=== PATIENT | female | born 1955 | race Caucasian/White ===

== ENCOUNTER → 2016-07-15 | Outpatient (CLI) | payer BC ==
[~2016-07-15] MED LIST: ASP81CT; ASP81CT PO; ATOR40TA; BPR150TCR PO; BUPR150T6; CALC-52 PO; CARV12.52; CARV12.52 PO; CATHETER FLUSH 10 ML SYR IV PRN; CLPD75T; CLPD75T PO; EZET10TA5; EZET10TA5 PO; FAMO20TA5 PO; FLAX1CAP6 PO; GLUC-96 PO; HYDR-3720 PO; ISM30TCR; KRIL500C PO; MEGA RED PO; MTF500TCR; NAPR-243 PO; NF-ESOM40C; NFR150C; OLME40TA14; OLME40TA14 PO; OMEG1CAP PO; OMG1KC; ORPH100T PO; PITA4TAB2 PO; REGADENOSON 0.4 MG/5 ML SYR (LEXISCAN) IV ONE
[2016-07-15 13:29] VITALS: BP 173/88
[2016-07-15 13:35] VITALS: BP 189/92
== END ==
LOC: CARD 11:31
PROVIDERS: ATTEND Physician Assistant Medical
DX: I25.10 Atherosclerotic heart disease of native coronary artery without angina pectoris (principal); I10 Essential (primary) hypertension; E78.5 Hyperlipidemia, unspecified; Z95.5 Presence of coronary angioplasty implant and graft
CPT/HCPCS: 78452; 93017

== ENCOUNTER → 2017-01-20 | Outpatient (CLI) | payer BC ==
[~2017-01-20] MED LIST changes: -CATHETER FLUSH 10 ML SYR IV PRN; -REGADENOSON 0.4 MG/5 ML SYR (LEXISCAN) IV ONE
--- NOTE | 2017-01-21 09:17 | Diagnostic Imaging Report ---
Bilateral screening mammogram 2D views with tomosynthesis The current study was also evaluated with a Computer Aided Detection (CAD) system. Indication: Screening. No current complaints stated on the questionnaire. COMPARISON: 10/02/15. FINDINGS: The breasts are composed of scattered fibroglandular densities. Occasional benign-appearing calcifications are seen. There is an area of stable scarring in the central aspect of the left breast. Allowing for technique and positional differences, no suspicious change is seen. IMPRESSION: No significant change. ACR BI-RADS Category 2: Benign findings. Result letter will be mailed to the patient. Note: At least 10% of breast cancer is not imaged by mammography. Dictated by: Dictated on workstation # [id number]
== END ==
LOC: RAD 09:38
PROVIDERS: ATTEND Nurse Practitioner Family
DX: Z12.31 Encounter for screening mammogram for malignant neoplasm of breast (principal)
CPT/HCPCS: 77067

== ENCOUNTER 2017-08-12 07:18 | Day surgery (SDC) | payer BC ==
[2017-08-12] VITALS (7 sets, daily range): BP systolic 102–144; BP diastolic 64–95
[~2017-08-12] VITALS: Ht 165.1 cm; Wt 93.4 kg
[2017-08-12] MEDS ORDERED: LIDOCAINE 1% INJ 20 ML 20 ML VIAL ONE (07:31)
[2017-08-12] MEDS ORDERED: NS IV 1000 ML 1,000 ML ONE (07:31)
[2017-08-12] MEDS ORDERED: HEParin (CATH LAB) 2,000 ML IV ONE (07:31)
[2017-08-12] MEDS ORDERED: NS IV 1000 ML 1,000 ML IV SCH ×2 (07:45→09:24)
[2017-08-12 07:59] LABS: HEMOGLOBIN 13.2 G/DL (11.5-16.0); RED BLOOD COUNT 4.92 10^6/uL (4.35-5.85); RED CELL DISTRIBUTION WIDTH 20.3 % (10.0-14.5); WHITE BLOOD COUNT 12.2 10^3/uL (4.3-11.0)
[2017-08-12] MEDS ORDERED: fentaNYL INJECTION 100 MCG/2 ML AMP ONE (08:03)
[2017-08-12] MEDS ORDERED: MIDAZOLAM 5 MG/5 ML (VERSED) VIAL ONE (08:03)
[2017-08-12] MEDS ORDERED: diphenhydrAMINE 50 MG/ML INJ (BENADRYL) ONE (08:03)
[2017-08-12 08:14] LABS: PROTHROMBIN TIME PATIENT 12.9 SEC (12.2-14.7)
[2017-08-12 08:21] LABS: ALBUMIN 4.1 GM/DL (3.2-4.5); BILIRUBIN,TOTAL 0.5 MG/DL (0.1-1.0); CALCIUM 10.3 MG/DL (8.5-10.1); CREATININE SERUM 1.14 MG/DL (0.60-1.30); POTASSIUM 4.5 MMOL/L (3.6-5.0); TOTAL PROTEIN 7.8 GM/DL (6.4-8.2)
--- NOTE | 2017-08-12 08:25 | Cardiac Procedure Note-CS/ASA ---
Pre-Procedure Note Pre-Op Procedure Note H&P Reviewed The H&P was reviewed, patient examined and no changes noted. Date H&P Reviewed: Aug 12, 2017 Time H&P Reviewed: 08:25 Conscious Sedation Pre-Proced Time Reviewed: 08:25 ASA Class: 3 Airway Mallampati Classification: (umatilla tribe appropriate class) I. II. III, IV Lungs Heart ASA score ASA 1: a normal healthy patient ASA 2: a patient with a mild systemic disease (mid diabetes, controlled hypertension, obesity ASA 3: a patient with a severe systemic disease that limits activity (angina , COPD, prior Myocardial infarction) ASA 4: a patient with an incapacitating disease that is a constant threat to life (CHF, renal failure) ASA 5: a moribund patient not expected to survive 24 hrs. (ruptured aneurysm) ASA 6: a declared brain patient whose organs are being harvested. For emergent operations, add the letter E after the classification Grade 2 Sedation Plan: Analgesia, Amnesia, Plan communicated to team members, Discussed options with patient/fam, Discussed risks with patient/fam Note The patient is an appropriate candidate to undergo the planned procedure, sedation, and anesthesia. The patient immediately re-assessed prior to indication. LEO KIRKPATRICK MD FACP FACC [facility] Aug 12, 2017 08:25
[2017-08-12] MEDS ORDERED: ISOS30TA3 PO (08:34)
--- NOTE | 2017-08-12 09:27 | Discharge Inst-Post CATH ---
Discharge Inst-CATH Post Cardiac Cath D/C Inst Follow Up/Plan F/u with Dr Paul in 2-3 weeks CARDIAC CATH DISCHARGE INSTRUCTIONS *Hold Metformin for 48 hours post heart cath. ACTIVITY * Go Home directly and rest. * Limit activity of the leg (or wrist if it was used) for 7 days including aerobics, swimming, jogging, bicycling, etc. * Restrict stair-climbing for 7 days if possible, if not, climb up with your non -cath leg, then bring together on the same step. * Avoid lifting, pushing, pulling or excessive movement of the affected extremity for 7 days. * Customary sexual activity may be resumed after 2 days-use caution not to use a position that strains or causes pain to the affected extremity. * No driving for 24 hours. * NO SMOKING. * Avoid straining for bowel movements for 7 days. * Gentle walking on level ground is allowed. * Returning to work will depend on the type of procedure and the results. Your doctor will discuss this with you. CALL YOUR DOCTOR FOR ANY OF THE FOLLOWING: *If bleeding from the puncture site occurs- Apply gentle pressure to site with clean cloth and call your doctor or EMS. * If a knot or lump forms under the skin, increases in size, or causes pain. * If bruising appears to be worsening or moving further down your leg instead of disappearing. * Temperature above 101 F. CARE OF YOUR GROIN INCISION; * Bruising or purple discoloration of the skin near the puncture site is common. * You may shower only, no bathtub bathing for 5 days. Be careful to avoid slipping as your leg may feel stiff. * If a closure device was used on your femoral artery, please see the attached guide regarding care of the device and your leg. * REMOVE the dressing from your groin the next day after your procedure in the shower. CARE OF YOUR WRIST INCISION; * Bruising or purple discoloration of the skin near the puncture site is common. * You may shower. * DO NOT submerge wrist. * Remove dressing in 24 hours. LEO PAUL MD [facility]S Aug 12, 2017 09:27
--- NOTE | 2017-08-12 09:28 | Discharge Inst-Cardiology ---
Discharge Inst-Cardiac Discharge Medications Continued Medications: Aspirin (Aspirin 81 Mg Chew Tab) 81 Mg Chew 162 MG PO BID Bupropion Hcl (Wellbutrin Sr) 150 Mg Tablet 1 TAB PO BID, #30 TAB Calcium Citrate/Vitamin D3 (Calcium Citrate - Vit D Caplet) 1 Each Tablet 2 EACH PO DAILY Carvedilol (Coreg) 12.5 Mg Tablet 1 TAB PO BID Clopidogrel (Plavix) 75 Mg Tablet 1 EACH PO DAILY Ezetimibe (Zetia) 10 Mg Tablet 10 MG PO HS Famotidine (Pepcid) 20 Mg Tablet 1 EACH PO BID Flaxseed Oil/Holdrege 3,6,9 (Sv Flaxseed Oil 1,300 mg Sftgl) 1 Each Capsule 1 EACH PO BID Hydrocodone Bit/Acetaminophen (Lortab 10-325 Mg) 1 Ea Tab 1-2 EA PO Q6HR PRN for PAIN, #60 TAB 0 Refills Isosorbide Mononitrate (Isosorbide Mononitrate ER) 30 Mg Tab.er.24h 30 MG PO BID, TAB [Cornell Red ] () 1 TAB PO BID Naproxen (Naprosyn) 500 Mg Tablet 1 EACH PO BID PRN Olmesartan Medoxomil (Benicar) 40 Mg Tablet 1 TAB PO DAILY Orphenadrine Citrate (Norflex) 100 Mg Tablet.sa 100 MG PO BID PRN Pitavastatin Calcium (Livalo) 4 Mg Tablet 4 MG PO DAILY LEO KIRKPATRICK MD FACP [facility] CCDS Aug 12, 2017 09:28
[2017-08-12] MEDS ORDERED: PATIENT MAY USE OWN MEDS, ALL PO SCH (09:30)
--- NOTE | 2017-08-12 13:23 | CARDIAC CATHETERIZATION ---
DATE OF SERVICE: 08/12/2017 CARDIAC CATHETERIZATION REPORT The patient is a 61-year-old lady, who is known to have coronary artery disease and has previously had stenting of the mid left anterior descending in the ostial and proximal right coronary, several years ago. She has been experiencing recurrent chest discomfort suggestive of crescendo angina. A recent myocardial perfusion imaging study was reported to have shown a small amount of mid anterior lateral reversible defect. Cardiac catheterization was carried out today after having obtained an informed consent. DESCRIPTION OF PROCEDURE: She was brought to the cardiac catheterization laboratory in a fasting state. Right groin was prepared and draped in the usual sterile fashion. Lidocaine 1% with local anesthesia. Modified Seldinger technique was used to advance a 5-[place] sheath into right femoral artery. A 5-[place] JL3.5 catheter was used for left coronary angiography. A 5-[place] JR4 catheter was used for right coronary angiography. A 5-[place] pigtail catheter was used for left heart catheterization and left ventricular angiography. The pigtail catheter was pulled back to the aortic root and aortic root angiography was performed. The catheters were removed. Angiography of the right femoral artery was carried out through the sheath. Mynx was used to achieve hemostasis. She tolerated the procedure well. HEMODYNAMICS: Left ventricular end-diastolic pressure following coronary angiography was 16 mmHg. There was no significant pressure gradient on pullback across the aortic valve. Ascending aortic pressure was 139/86 with a mean of 111 mmHg. CORONARY ANGIOGRAPHY: Left main coronary artery is free of significant disease. Left anterior descending artery has a widely patent stent in its mid portion. Left circumflex artery does not exhibit significant obstructive disease. Right coronary artery has a widely patent stent in its ostial and proximal portions. The right coronary artery is dominant. LEFT VENTRICULAR ANGIOGRAPHY: Left ventricular angiography was carried out in the right anterior oblique projection. Global left ventricular systolic function is normal to hyperdynamic. Left ventricular ejection fraction is approximately 70%. No significant mitral regurgitation is seen. No significant regional wall motion abnormalities are seen. CONCLUSIONS: 1. Mild coronary artery disease. There are widely patent stents in the mid left anterior descending in the ostial/proximal right coronary. 2. Normal global left ventricular systolic function with ejection fraction of 70%. 3. Mild elevation of left ventricular end-diastolic pressure. DISCUSSION AND RECOMMENDATIONS: Based on the results of the study, it appears appropriate to continue a conservative approach. Risk factor modification has been reviewed. Outpatient followup is advised. Igor ID: [id number] DocumentID: [id number] Dictated Date: 08/12/2017 09:18:48 Train Electronic Technician Date: 08/12/2017 13:22:36 Dictated By: LEO KIRKPATRICK MD, MA, FACP, FACC,
== END 2017-08-12 13:00 | disposition home or self-care (01) ==
LOC: CATH 07:18 → ICU 09:10 → CATH 13:00 → ICU 14:28
PROVIDERS: ATTEND Internal Medicine Cardiovascular Disease
DX: I25.10 Atherosclerotic heart disease of native coronary artery without angina pectoris (principal); Z95.5 Presence of coronary angioplasty implant and graft; I10 Essential (primary) hypertension; E78.5 Hyperlipidemia, unspecified; M79.89 Other specified soft tissue disorders; E66.9 Obesity, unspecified; Z79.899 Other long term (current) drug therapy; Z68.35 Body mass index [BMI] 35.0-35.9, adult
CPT/HCPCS: 36415; 80053; 80061; 85027; 85610; 85730; 87081; 93458

== ENCOUNTER → 2017-09-08 | Outpatient (CLI) | payer BC ==
[~2017-09-08] MED LIST changes: +ISOS30TA3 PO
--- NOTE | 2017-09-08 09:06 | Diagnostic Imaging Report ---
INDICATION: Shortness of air on exertion. TIME OF EXAM: 9:07 AM Comparison is made with prior chest from 02/13/2013. FINDINGS: The heart size is normal. The pulmonary vascularity is unremarkable. The lungs are clear. No infiltrate, effusion or pneumothorax is detected. IMPRESSION: No acute cardiopulmonary process is detected. Dictated by: Dictated on workstation # [id number]
== END ==
LOC: RAD 08:37
PROVIDERS: ATTEND Family Medicine
DX: R06.02 Shortness of breath (principal)
CPT/HCPCS: 71046

== ENCOUNTER 2017-12-21 08:34 | Emergency (ER) | payer BC ==
[~2017-12-21] VITALS: Ht 162.6 cm; Wt 90.7 kg
[~2017-12-21 08:34] MED LIST changes: -DICL100G18 TP; -OXYC-471 PO; -POLY17PO6 PO; -PRD20T PO
--- OUTSIDE RECORDS SUMMARY | 2017-12-21 08:39 | XMS REPORT | Continuity of Care Document ---
Author Author [facility] Organization [facility] Address Unknown Phone Unavailable Allergies Active Description Code Type Severity Reaction Onset Reported/Identified Relationship to Patient Clinical Status Yes enalapril [id number] Drug Allergy Unknown COUGH 02/13/2013 Yes enalaprilat [id number] Drug Allergy Unknown COUGH 02/13/2013 Yes Sulfa (Sulfonamide Antibiotics) [id number] Drug Allergy Unknown N/A 2012 Yes sulfamethoxazole [id number] Drug Allergy Unknown N/A 02/13/2013 Yes trimethoprim [id number] Drug Allergy Unknown N/A 02/13/2013 Medications There is no data. Problems Date Dx Coded Attending Type Code Diagnosis Diagnosed By 02/22/2013 MARCO ANTONIO WHITE DO Ot 715.36 LOC OSTEOARTH NOS-L/LEG 02/22/2013 MARCO ANTONIO WHITE DO Ot V54.01 ENCNTR FOR REMOVAL OF INTERNAL FIXATION 11/07/2014 LAWRENCE CUEVAS Ot V76.12 10/02/2015 Ot 627.2 SYMPT MENOPAUSE OR FEMALE CLIMACTERIC ST 10/02/2015 Ot V76.12 OTH SCREEN MAMMO-MALIGN NEOPLASM OF [place] 10/02/2015 Ot V82.81 SCREENING FOR OSTEOPOROSIS 10/02/2015 Ot V76.12 OTH SCREEN MAMMO-MALIGN NEOPLASM OF [place] 10/02/2015 GUME SANCHEZ, ZULEYMA Bruce Ot V76.12 OTH SCREEN MAMMO-MALIGN NEOPLASM OF [place] 10/02/2015 MARCO ANTONIO WHITE DO Ot 715.36 LOC OSTEOARTH NOS-L/LEG 10/02/2015 MARCO ANTONIO WHITE DO Ot V72.63 PRE-PROCEDURAL LABORATORY EXAMINATION 10/02/2015 MARCO ANTONIO WHITE DO Ot V72.83 EXAM PRE-OPERATIVE NEC 10/02/2015 MARCO ANTONIO WHITE DO Ot V74.8 SCREEN-BACTERIAL DIS NEC 10/02/2015 MARCO ANTONIO WHITE DO Ot V58.61 ANTICOAGULANTS,LT,CURRENT USE 10/02/2015 CHRISTOPHER REESE MARCO ANTONIO Bridger Ot V58.83 ENCOUNTER FOR THERAPEUTIC DRUG MONITORIN 10/02/2015 CHRISTOPHER REESE MARCO ANTONIO Bridger Ot 715.91 OSTEOARTHROS NOS-SHLDER 10/02/2015 MARCO ANTONIO WHITE DO Ot 719.01 JOINT EFFUSION-SHLDER 10/02/2015 CHRISTOPHER REESE MARCO ANTONIO Bridger Ot 726.10 BURSAE TENDONS DIS SHLDER NOS 10/02/2015 LIYAH SANCHEZ, ABBY Ot V76.12 OTH SCREEN MAMMO-MALIGN NEOPLASM OF [place] 10/02/2015 LIYAH SANCHEZ, ABBY Ot V82.81 SCREENING FOR OSTEOPOROSIS 10/02/2015 LAWRENCE CUEVAS ESTATE MANAGER Ot V76.12 OTH SCREEN MAMMO-MALIGN NEOPLASM OF [place] 10/03/2015 LAWRENCE CUEVAS ESTATE MANAGER Ot Z12.31 ENCNTR SCREEN MAMMOGRAM FOR MALIGNANT NE 10/03/2015 LAWRENCE CUEVAS ESTATE MANAGER Ot Z12.31 ENCNTR SCREEN MAMMOGRAM FOR MALIGNANT NE 10/17/2015 LAWRENCE CUEVAS ESTATE MANAGER Ot Z12.31 ENCNTR SCREEN MAMMOGRAM FOR MALIGNANT NE 07/15/2016 Ot V76.12 OTH SCREEN MAMMO-MALIGN NEOPLASM OF [place] 07/15/2016 GUME SANCHEZ, ZULEYMA Bruce Ot V76.12 OTH SCREEN MAMMO-MALIGN NEOPLASM OF [place] 07/15/2016 MARCO ANTONIO WHITE DO Ot 715.36 LOC OSTEOARTH NOS-L/LEG 07/15/2016 MARCO ANTONIO WHITE DO Ot V72.63 PRE-PROCEDURAL LABORATORY EXAMINATION 07/15/2016 MARCO ANTONIO WHITE DO Ot V72.83 EXAM PRE-OPERATIVE NEC 07/15/2016 MARCO ANTONIO WHITE DO Ot V74.8 SCREEN-BACTERIAL DIS NEC 07/15/2016 MARCO ANTONIO WHITE DO Ot V58.61 ANTICOAGULANTS,LT,CURRENT USE 07/15/2016 MARCO ANTONIO WHITE DO Ot V58.83 ENCOUNTER FOR THERAPEUTIC DRUG MONITORIN 07/15/2016 MARCO ANTONIO WHITE DO Ot 715.91 OSTEOARTHROS NOS-SHLDER 07/15/2016 MARCO ANTONIO WHITE DO Ot 719.01 JOINT EFFUSION-SHLDER 07/15/2016 MARCO ANTONIO WHITE DO Ot 726.10 BURSAE TENDONS DIS SHLDER NOS 07/15/2016 ABBY PELLETIER MD Ot V76.12 OTH SCREEN MAMMO-MALIGN NEOPLASM OF [place] 07/15/2016 ABBY PELLETIER MD Ot V82.81 SCREENING FOR OSTEOPOROSIS 07/15/2016 LAWRENCE CUEVAS Ot V76.12 OTH SCREEN MAMMO-MALIGN NEOPLASM OF [place] 07/15/2016 LAWRENCE CUEVAS Ot Z12.31 ENCNTR SCREEN MAMMOGRAM FOR MALIGNANT NE 07/15/2016 Ot V76.12 OTH SCREEN MAMMO-MALIGN NEOPLASM OF [place] 07/15/2016 ZULEYMA DUNAWAY MD Ot V76.12 OTH SCREEN MAMMO-MALIGN NEOPLASM OF [place] 07/15/2016 MARCO ANTONIO WHITE DO Ot 715.36 LOC OSTEOARTH NOS-L/LEG 07/15/2016 MARCO ANTONIO WHITE DO Ot V72.63 PRE-PROCEDURAL LABORATORY EXAMINATION 07/15/2016 MARCO ANTONIO WHITE DO Ot V72.83 EXAM PRE-OPERATIVE NEC 07/15/2016 MARCO ANTONIO WHITE DO Ot V74.8 SCREEN-BACTERIAL DIS NEC 07/15/2016 MARCO ANTONIO WHITE DO Ot V58.61 ANTICOAGULANTS,LT,CURRENT USE 07/15/2016 MARCO ANTONIO WHITE DO Ot V58.83 ENCOUNTER FOR THERAPEUTIC DRUG MONITORIN 07/15/2016 MARCO ANTONIO WHITE DO Ot 715.91 OSTEOARTHROS NOS-SHLDER 07/15/2016 MARCO ANTONIO WHITE DO Ot 719.01 JOINT EFFUSION-SHLDER 07/15/2016 MARCO ANTONIO WHITE DO Ot 726.10 BURSAE TENDONS DIS SHLDER NOS 07/15/2016 ABBY PELLETIER MD Ot V76.12 OTH SCREEN MAMMO-MALIGN NEOPLASM OF [place] 07/15/2016 ABBY PELLETIER MD Ot V82.81 SCREENING FOR OSTEOPOROSIS 07/15/2016 LAWRENCE CUEVAS Ot V76.12 OTH SCREEN MAMMO-MALIGN NEOPLASM OF [place] 07/15/2016 LAWRENCE CUEVAS Ot Z12.31 ENCNTR SCREEN MAMMOGRAM FOR MALIGNANT NE 07/15/2016 Ot V76.12 OTH SCREEN MAMMO-MALIGN NEOPLASM OF [place] 07/15/2016 ZULEYMA DUNAWAY MD Ot V76.12 OTH SCREEN MAMMO-MALIGN NEOPLASM OF [place] 07/15/2016 MARCO ANTONIO WHITE DO Ot 715.36 LOC OSTEOARTH NOS-L/LEG 07/15/2016 CHRISTOPHER REESE MARCO ANTONIO Sparks Ot V72.63 PRE-PROCEDURAL LABORATORY EXAMINATION 07/15/2016 CHRISTOPHER REESE MARCO ANTONIO Sparks Ot V72.83 EXAM PRE-OPERATIVE NEC 07/15/2016 CHRISTOPHER REESE MARCO ANTONIO Sparks Ot V74.8 SCREEN-BACTERIAL DIS NEC 07/15/2016 CHRISTOPHER REESE MARCO ANTONIO Sparks Ot V58.61 ANTICOAGULANTS,LT,CURRENT USE 07/15/2016 CHRISTOPHER REESE MARCO ANTONIO Sparks Ot V58.83 ENCOUNTER FOR THERAPEUTIC DRUG MONITORIN 07/15/2016 CHRISTOPHER REESE MARCO ATNONIO Sparks Ot 715.91 OSTEOARTHROS NOS-SHLDER 07/15/2016 CHRISTOPHER REESE MARCO ANTONIO Sparks Ot 719.01 JOINT EFFUSION-SHLDER 07/15/2016 CHRISTOPHER REESE MARCO ANTONIO Sparks Ot 726.10 BURSAE TENDONS DIS SHLDER NOS 07/15/2016 ABBY PELLETIER MD Ot V76.12 OTH SCREEN MAMMO-MALIGN NEOPLASM OF [place] 07/15/2016 ABBY PELLETIER MD Ot V82.81 SCREENING FOR OSTEOPOROSIS 07/15/2016 LAWRENCE CUEVAS Ot V76.12 OTH SCREEN MAMMO-MALIGN NEOPLASM OF [place] 07/15/2016 LAWRENCE CUEVAS Ot Z12.31 ENCNTR SCREEN MAMMOGRAM FOR MALIGNANT NE 08/03/2016 MIRIAM WATTERS PA-C Ot E78.5 HYPERLIPIDEMIA, UNSPECIFIED 08/03/2016 MIRIAM WATTERS PA-C Ot I10 ESSENTIAL (PRIMARY) HYPERTENSION 08/03/2016 MIRIAM WATTERS PA-C Ot I25.10 ATHSCL HEART DISEASE OF [place] CORONARY 08/03/2016 MIRIAM WATTERS PA-C Ot Z95.5 PRESENCE OF CORONARY ANGIOPLASTY IMPLANT 08/04/2016 MIRIAM WATTERS PA-C Ot E78.5 HYPERLIPIDEMIA, UNSPECIFIED 08/04/2016 MIRIAM WATTERS PA-C Ot I10 ESSENTIAL (PRIMARY) HYPERTENSION 08/04/2016 MIRIAM WATTERS PA-C Ot I25.10 ATHSCL HEART DISEASE OF [place] CORONARY 08/04/2016 MIRIAM WATTERS PA-C Ot Z95.5 PRESENCE OF CORONARY ANGIOPLASTY IMPLANT 09/02/2016 MIRIAM WATTERS PA-C Ot E78.5 HYPERLIPIDEMIA, UNSPECIFIED 09/02/2016 MIRIAM WATTERS PA-C Ot I10 ESSENTIAL (PRIMARY) HYPERTENSION 09/02/2016 MIRIAM WATTERS PA-C Ot I25.10 ATHSCL HEART DISEASE OF [place] CORONARY 09/02/2016 MIRIAM WATTERS PA-C Ot Z95.5 PRESENCE OF CORONARY ANGIOPLASTY IMPLANT 09/12/2016 Ot V76.12 OTH SCREEN MAMMO-MALIGN NEOPLASM OF [place] 09/12/2016 GUME SANCHEZ, ZULEYMA Bruce Ot V76.12 OTH SCREEN MAMMO-MALIGN NEOPLASM OF [place] 09/12/2016 MARCO ANTONIO WHITE DO Ot 715.36 LOC OSTEOARTH NOS-L/LEG 09/12/2016 MARCO ANTONIO WHITE DO Ot V72.63 PRE-PROCEDURAL LABORATORY EXAMINATION 09/12/2016 MARCO ANTONIO WHITE DO Ot V72.83 EXAM PRE-OPERATIVE NEC 09/12/2016 MARCO ANTONIO WHITE DO Ot V74.8 SCREEN-BACTERIAL DIS NEC 09/12/2016 MARCO ANTONIO WHITE DO Ot V58.61 ANTICOAGULANTS,LT,CURRENT USE 09/12/2016 MARCO ANTONIO WHITE DO Ot V58.83 ENCOUNTER FOR THERAPEUTIC DRUG MONITORIN 09/12/2016 MARCO ANTONIO WHITE DO Ot 715.91 OSTEOARTHROS NOS-SHLDER 09/12/2016 MARCO ANTONIO WHITE DO Ot 719.01 JOINT EFFUSION-SHLDER 09/12/2016 MARCO ANTONIO WHITE DO Ot 726.10 BURSAE TENDONS DIS SHLDER NOS 09/12/2016 LIYAH SANCHEZ, ABBY Ot V76.12 OTH SCREEN MAMMO-MALIGN NEOPLASM OF [place] 09/12/2016 ABBY PELLETIER MD Ot V82.81 SCREENING FOR OSTEOPOROSIS 09/12/2016 LAWRENCE CUEVAS Ot V76.12 OTH SCREEN MAMMO-MALIGN NEOPLASM OF [place] 09/12/2016 LAWRENCE CUEVAS Ot Z12.31 ENCNTR SCREEN MAMMOGRAM FOR MALIGNANT NE 09/12/2016 MIRIAM WATTERS PA-C Ot E78.5 HYPERLIPIDEMIA, UNSPECIFIED 09/12/2016 MIRIAM WATTERS PA-C Ot I10 ESSENTIAL (PRIMARY) HYPERTENSION 09/12/2016 MIRIAM WATTERS PA-C Ot I25.10 ATHSCL HEART DISEASE OF [place] CORONARY 09/12/2016 MIRIAM WATTERS PA-C Ot Z95.5 PRESENCE OF CORONARY ANGIOPLASTY IMPLANT 01/14/2017 MIRIAM WATTERS PA-C Ot E78.5 HYPERLIPIDEMIA, UNSPECIFIED 01/14/2017 MIRIAM WATTERS PA-C Ot I10 ESSENTIAL (PRIMARY) HYPERTENSION 01/14/2017 MIRIAM WATTERS PA-C Ot I25.10 ATHSCL HEART DISEASE OF [place] CORONARY 01/14/2017 MIRIAM WATTERS PA-C Ot Z95.5 PRESENCE OF CORONARY ANGIOPLASTY IMPLANT 01/26/2017 KURTIS CALHOUN APRN Ot Z12.31 ENCNTR SCREEN MAMMOGRAM FOR MALIGNANT NE 02/07/2017 KURTIS CALHOUN APRN Ot Z12.31 ENCNTR SCREEN MAMMOGRAM FOR MALIGNANT NE 08/12/2017 MIRIAM WATTERS PA-C Ot E78.5 HYPERLIPIDEMIA, UNSPECIFIED 08/12/2017 MIRIAM WATTERS PA-C Ot I10 ESSENTIAL (PRIMARY) HYPERTENSION 08/12/2017 MIRIAM WATTERS PA-C Ot I25.10 ATHSCL HEART DISEASE OF [place] CORONARY 08/12/2017 MIRIAM WATTERS PA-C Ot Z95.5 PRESENCE OF CORONARY ANGIOPLASTY IMPLANT 08/12/2017 KURTIS CALHOUN PENSIONHOLDER INFORMATION CLERK Ot Z12.31 ENCNTR SCREEN MAMMOGRAM FOR MALIGNANT NE 08/12/2017 CASIMIRO SANCHEZ FACC, LEO FACP CCDS Ot E66.9 OBESITY, UNSPECIFIED 08/12/2017 CASIMIRO SANCHEZ FACC, LEO FACP CCDS Ot E78.5 HYPERLIPIDEMIA, UNSPECIFIED 08/12/2017 CASIMIRO SANCHEZ FACC, LEO FACP CCDS Ot I10 ESSENTIAL (PRIMARY) HYPERTENSION 08/12/2017 CASIMIRO SANCHEZ FACC, LEO FACP CCDS Ot I25.10 ATHSCL HEART DISEASE OF [place] CORONARY 08/12/2017 CASIMIRO SANCHEZ FACC, LEO FACP CCDS Ot M79.89 OTHER SPECIFIED SOFT TISSUE DISORDERS 08/12/2017 CASIMIRO SANCHEZ FACC, LEO FACP CCDS Ot Z68.35 BODY MASS INDEX (BMI) 35.0-35.9, ADULT 08/12/2017 LEO KIRKPATRICK MD, FACC FACP CCDS Ot Z79.899 OTHER NURSING HOME (CURRENT) DRUG THERAPY 08/12/2017 CASIMIRO SANCHEZ FACC, ALI FACP CCDS Ot Z95.5 PRESENCE OF CORONARY ANGIOPLASTY IMPLANT 08/15/2017 CASIMIRO SANCHEZ FACC, ALI FACP CCDS Ot E66.9 OBESITY, UNSPECIFIED 08/15/2017 CASIMIRO SANCHEZ FACC, ALI FACP CCDS Ot E78.5 HYPERLIPIDEMIA, UNSPECIFIED 08/15/2017 CASIMIRO SANCHEZ FACC, ALI FACP CCDS Ot I10 ESSENTIAL (PRIMARY) HYPERTENSION 08/15/2017 CASIMIRO MAST, ALI FACP CCDS Ot I25.10 ATHSCL HEART DISEASE OF [place] CORONARY 08/15/2017 CASIMIRO MAST, ALI FACP CCDS Ot M79.89 OTHER SPECIFIED SOFT TISSUE DISORDERS 08/15/2017 CASIMIRO MAST, ALI FACP CCDS Ot Z68.35 BODY MASS INDEX (BMI) 35.0-35.9, ADULT 08/15/2017 CASIMIRO SANCHEZ FACC, ALI FACP CCDS Ot Z79.899 OTHER DESIGNER (CURRENT) DRUG THERAPY 08/15/2017 CASIMIRO MAST, ALI FACP CCDS Ot Z95.5 PRESENCE OF CORONARY ANGIOPLASTY IMPLANT 08/30/2017 LAWRENCE CUEVAS ESTATE MANAGER Ot R06.02 SHORTNESS OF BREATH 08/30/2017 LAWRENCE CUEVAS ESTATE MANAGER Ot Z77.22 CNTCT W AND EXPSR TO ENVIRON TOBACCO SMO 09/09/2017 ACE CORBETT MD Ot R06.02 SHORTNESS OF BREATH 09/15/2017 LAWRENCE CUEVAS ESTATE MANAGER Ot R06.02 SHORTNESS OF BREATH 09/15/2017 LAWRENCE CUEVAS ESTATE MANAGER Ot Z77.22 CNTCT W AND EXPSR TO ENVIRON TOBACCO SMO 09/21/2017 ACE CORBETT MD Ot R06.02 SHORTNESS OF BREATH 11/04/2017 ABBY PELLETIER MD, Ot Z12.31 ENCNTR SCREEN MAMMOGRAM FOR MALIGNANT NE 11/04/2017 ABBY PELLETIER MD, Ot Z78.0 ASYMPTOMATIC MENOPAUSAL STATE 11/04/2017 ABBY PELLETIER MD, Ot Z12.31 ENCNTR SCREEN MAMMOGRAM FOR MALIGNANT NE 11/04/2017 ABBY PELLETIER MD, Ot Z13.820 ENCOUNTER FOR SCREENING FOR OSTEOPOROSIS 11/04/2017 ABBY PELLETIER MD, Ot Z78.0 ASYMPTOMATIC MENOPAUSAL STATE 11/24/2017 ABBY PELLETIER MD, Ot Z12.31 ENCNTR SCREEN MAMMOGRAM FOR MALIGNANT NE 11/24/2017 ABBY PELLETIER MD, Ot Z13.820 ENCOUNTER FOR SCREENING FOR OSTEOPOROSIS 11/24/2017 ABBY PELLETIER MD, Ot Z78.0 ASYMPTOMATIC MENOPAUSAL STATE Procedures Code Description Performed By Performed On 37.22 LEFT HEART CARDIAC CATH 06/25/2007 88.53 LT HEART ANGIOCARDIOGRAM 06/25/2007 88.56 CORONAR ARTERIOGR-2 CATH 06/25/2007 78.67 REMOV INT FIX-TIB/FIBULA 02/20/2013 81.54 TOTAL KNEE REPLACEMENT 02/20/2013 Results Test Result Range Automated blood complete blood count (hemogram) panel - 08/12/17 07:48 Blood leukocytes automated count (number/volume) 12.2 10*3/uL 4.3-11.0 Blood erythrocytes automated count (number/volume) 4.92 10*6/uL 4.35-5.85 Venous blood hemoglobin measurement (mass/volume) 13.2 g/dL 11.5-16.0 Blood hematocrit (volume fraction) 40 % 35-52 Automated erythrocyte mean corpuscular volume 81 [foz_us] 80-99 Automated erythrocyte mean corpuscular hemoglobin (mass per erythrocyte) 27 pg 25-34 Automated erythrocyte mean corpuscular hemoglobin concentration measurement ( mass/volume) 33 g/dL 32-36 Automated erythrocyte distribution width ratio 20.3 % 10.0-14.5 Automated blood platelet count (count/volume) 207 10*3/uL 130-400 Automated blood platelet mean volume measurement 12.0 [foz_us] 7.4-10.4 PT panel in platelet poor plasma by coagulation assay - 08/12/17 07:48 Prothrombin time (PT) in platelet poor plasma by coagulation assay 12.9 s 12.2-14.7 INR in platelet poor plasma or blood by coagulation assay 1.0 0.8-1.4 Activated partial thromboplastin time (aPTT) in platelet poor plasma bycoagulation assay - 08/12/17 07:48 Activated partial thromboplastin time (aPTT) in platelet poor plasma bycoagulation assay 26 s 24-35 Comprehensive metabolic panel - 08/12/17 07:48 Serum or plasma sodium measurement (moles/volume) 139 mmol/L 135-145 Serum or plasma potassium measurement (moles/volume) 4.5 mmol/L 3.6-5.0 Serum or plasma chloride measurement (moles/volume) 105 mmol/L 98-107 Carbon dioxide 23 mmol/L 21-32 Serum or plasma anion gap determination (moles/volume) 11 mmol/L 5-14 Serum or plasma urea nitrogen measurement (mass/volume) 24 mg/dL 7-18 Serum or plasma creatinine measurement (mass/volume) 1.14 mg/dL 0.60-1.30 Serum or plasma urea nitrogen/creatinine mass ratio 21 NRG Serum or plasma creatinine measurement with calculation of estimated glomerular filtration rate 49 NRG Serum or plasma glucose measurement (mass/volume) 84 mg/dL 70-105 Serum or plasma calcium measurement (mass/volume) 10.3 mg/dL 8.5-10.1 Serum or plasma total bilirubin measurement (mass/volume) 0.5 mg/dL 0.1-1.0 Serum or plasma alkaline phosphatase measurement (enzymatic activity/volume) 109 U/L 40-136 Serum or plasma aspartate aminotransferase measurement (enzymatic activity/ volume) 31 U/L 5-34 Serum or plasma alanine aminotransferase measurement (enzymatic activity/volume ) 27 U/L 0-55 Serum or plasma protein measurement (mass/volume) 7.8 g/dL 6.4-8.2 Serum or plasma albumin measurement (mass/volume) 4.1 g/dL 3.2-4.5 Lipid 1996 panel - 08/12/17 07:48 Serum or plasma triglyceride measurement (mass/volume) 173 mg/dL <150 Serum or plasma cholesterol measurement (mass/volume) 208 mg/dL < 200 Serum or plasma cholesterol in HDL measurement (mass/volume) 51 mg/ dL 40-60 Cholesterol in LDL [mass/volume] in serum or plasma by direct assay 136 mg/dL 1-129 Serum or plasma cholesterol in VLDL measurement (mass/volume) 35 mg/ dL 5-40 Methicillin resistant Staphylococcus aureus (MRSA) screening culture - 07:48 Methicillin resistant Staphylococcus aureus (MRSA) screening culture NG NRG Encounters ACCT No. Visit Date/Time Discharge Status Pt. Type Provider Facility Loc./Unit Complaint [id number] 05/18/2017 09:58:00 05/18/2017 23:59:00 DIS Outpatient [facility] [id number] 11/03/2017 09:19:00 11/03/2017 23:59:59 CLS Outpatient ABBY PELLETIER MD [facility] RAD SCREENING MAMMOGRAM, ASYMPTOMATIC MEMOPAUSAL STATE [id number] 09/08/2017 08:37:00 09/08/2017 23:59:59 CLS Outpatient ACE CORBETT MD [facility] RAD DYSPNEA [id number] 08/26/2017 13:16:00 08/26/2017 23:59:59 CLS Outpatient LAWRENCE CUEVAS [facility] RT SOB W/ EXERTION, SECOND HAND SMOKE [id number] 08/12/2017 07:18:00 08/12/2017 13:00:00 DIS Outpatient CASIMIRO SANCHEZ FACC, LEO CARR CCDS [facility] CATH CRESCENDO ANGINA,HTN,HL,CAD IN [place] ARTERY [id number] 01/20/2017 09:38:00 01/20/2017 23:59:59 CLS Outpatient KURTIS CALHOUN APRN [facility] RAD SCREENING [id number] 07/15/2016 11:31:00 07/15/2016 23:59:59 CLS Outpatient MIRIAM WATTERS PA-C [facility] CARD CAD [id number] 10/02/2015 07:07:00 10/02/2015 23:59:59 CLS Outpatient LAWRENCE CUEVAS [facility] RAD SCREENING [id number] 10/25/2014 11:04:00 10/25/2014 23:59:59 CLS Outpatient LAWRENCE CUEVAS [facility] RAD SCREENING [id number] 12/13/2013 08:07:00 12/13/2013 23:59:59 CLS Outpatient ABBY PELLETIER MD [facility] RAD ROUTINE,OSETOPOROISIS [id number] 04/04/2013 14:50:00 04/04/2013 23:59:59 CLS Outpatient MARCO ANTONIO WHITE DO [facility] RAD PAIN [id number] 03/05/2013 13:55:00 03/05/2013 23:59:59 CLS Outpatient MARCO ANTONIO WHITE DO [facility] HH ANTICOAGULANT THERAPY [id number] 02/20/2013 12:00:00 02/22/2013 21:38:00 DIS Inpatient CHRISTOPHER MARCO ANTONIO REESE [facility] SURGICAL RIGHT KNEE DEGENERATIVE JOINT DISEASE [id number] 02/13/2013 07:50:00 02/13/2013 23:59:59 CLS Outpatient CHRISTOPHER MARCO ANTONIO Sparks [facility] PREOP RIGHT KNEE DEGENERATIVE JOINT DISEASE [id number] 12/29/2012 07:06:00 12/29/2012 23:59:59 CLS Outpatient ZULEYMA DUNAWAY MD [facility] RAD SCREENING [id number] 12/10/2011 07:16:00 Document Registration [id number] 06/12/2010 09:18:00 Document Registration [id number] 06/24/2007 20:42:00 Document Registration
[2017-12-21] MEDS ORDERED: fentaNYL INJECTION 100 MCG/2 ML AMP IM ONE (09:15)
[2017-12-21] MEDS ORDERED: predniSONE 20 MG TAB PO ONE (09:15)
[2017-12-21] MEDS ORDERED: ORPHENADRINE 60 MG/2 ML (NORFLEX) AMP IM ONE (09:15)
[2017-12-21] MEDS ORDERED: KETOROLAC 30 MG/ML VIAL IM ONE (09:15)
--- NOTE | 2017-12-21 09:18 | ED Back Pain ---
General Chief Complaint: Back Problems Stated Complaint: BACK PAIN Nursing Triage Note: TO ROOM C/O OF R HIP AND LOW BACK PAIN WAS TOLD TO COME TO ER FOR MRI. HAS ONE SCHEDULED AT 2PM TODAY. FELL OFF ROLLING STOOL1 WEEK AGO Nursing Sepsis Screen: No Definite Risk Source of Information: Patient, Spouse Exam Limitations: No Limitations History of Present Illness Date Seen by Provider: Dec 21, 2017 Time Seen by Provider: 09:05 Initial Comments the patient presents to the ER by private conveyance with chief complaint she had a fall off of the stool at work about 2 weeks ago. She had some intermittent pain in her back that was mild and not really bothersome enough to take any medicine for her follow-up with her doctor. Last night however she says something happened and she started having a burning pain just to the right of her lower lumbar spine radiating down to her cheek and across to her midline. She took a Norflex, hydrocodone tablet and Aleve tablet and did not extend pain. 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 Gore who she works with and he ordered an MRI of her back at 2:00 this afternoon. She's never had any back surgery or significant back pain. She has no incontinence of urine or bowel or hesitancy of urine. She has no saddle anesthesia, numbness, weakness or further falls. She calls the pain severe 10 out of 10 now. Allergies and Home Medications Allergies Coded Allergies: Sulfa (Sulfonamide Antibiotics) (Unverified Allergy, 02/13/13) sulfamethoxazole (Unverified Allergy, 02/13/13) trimethoprim (Unverified Allergy, 02/13/13) Enalapril (Unverified Adverse Reaction, COUGH, 02/13/13) enalaprilat (Unverified Adverse Reaction, COUGH, 02/13/13) Home Medications Aspirin 81 Mg Chew, 162 MG PO BID, (Reported) Bupropion Hcl 150 Mg Tablet, 1 TAB PO BID, (Reported) Calcium Citrate/Vitamin D3 1 Each Tablet, 2 EACH PO DAILY, (Reported) Carvedilol 12.5 Mg Tablet, 1 TAB PO BID, (Reported) Clopidogrel 75 Mg Tablet, 1 EACH PO DAILY, (Reported) Ezetimibe 10 Mg Tablet, 10 MG PO HS, (Reported) Famotidine 20 Mg Tablet, 1 EACH PO BID, (Reported) Flaxseed Oil/Mandan 3,6,9 1 Each Capsule, 1 EACH PO BID, (Reported) Hydrocodone Bit/Acetaminophen 1 Ea Tab, 1-2 EA PO Q6HR PRN Prescribed by: ROSALINO VACA on 02/22/131912 Isosorbide Mononitrate 30 Mg Tab.er.24h, 30 MG PO BID, (Reported) Naproxen 500 Mg Tablet, 1 EACH PO BID PRN, (Reported) Olmesartan Medoxomil 40 Mg Tablet, 1 TAB PO DAILY, (Reported) Orphenadrine Citrate 100 Mg Tablet.sa, 100 MG PO BID PRN, (Reported) Pitavastatin Calcium 4 Mg Tablet, 4 MG PO DAILY, (Reported) [Cornell Red ] , 1 TAB PO BID, (Reported) Patient Home Medication List Home Medication List Reviewed: Yes Review of Systems Constitutional: No chills, No diaphoresis EENTM: No ear pain, No mouth pain Cardiovascular: No chest pain, No palpitations Gastrointestinal: No abdominal pain, No constipation, No diarrhea Genitourinary: No discharge, No dysuria Musculoskeletal: back pain; No joint pain Past Ebmwads-Slmriu-Ikitib Hx Patient Social History Alcohol Use: Denies Use Recreational Drug Use: No Smoking Status: Never a Smoker Recent Foreign Travel: No Contact w/Someone Who Travel: No Recent Infectious Disease Expo: No Recent Hopitalizations: Yes Immunizations Up To Date Tetanus Booster (TDap): Less than 5yrs PED Vaccines UTD: Yes Date of Pneumonia Vaccine: Dec 05, 2006 Date of Influenza Vaccine: Dec 05, 2012 Past Medical History Surgeries: Yes (BREAST REDUCTION, ACL ON RIGHT KNEE, UVULA SURGERY, SHOCK WAVE THERAPY FEET) Respiratory: No Cardiac: Yes Neurological: No Reproductive Disorders: No Gastrointestinal: No Musculoskeletal: Yes Arthritis Endocrine: No Cancer: No Psychosocial: No Integumentary: No Blood Disorders: No Adverse Reaction/Blood Tranf: No Family Medical History Dementia 03 FATHER Family history: Arthritis 03 MOTHER 09 BROTHER Family history: Cardiovascular disease 03 FATHER 03 MOTHER Family history: Diabetes mellitus Family history: Hypertension 03 MOTHER 09 SISTER Physical Exam Vital Signs Vital Signs - First Documented 12/21/17 08:44 Temp 96.9 Pulse 76 Resp 18 B/P (MAP) 173/98 (123) Pulse Ox 96 O2 Delivery Room Air Capillary Refill : Less Than 3 Seconds Height, Weight, BMI Height: 5'4.00" Weight: 200lbs. 0.0oz. 90.718415wq; 34.3 BMI Method:Stated General Appearance: WD/WN, Mild Distress HEENT: PERRL/EOMI, Normal ENT Inspection, Moist Mucous Membranes Cardiovascular: Regular Rate, Rhythm, No Edema Respiratory: Chest Non Tender, Lungs Clear, Normal Breath Sounds, No Accessory Muscle Use, No Respiratory Distress Peripheral Pulses: 2+ Radial Pulses (R), 2+ Radial Pulses (L) Back: Normal Inspection, No Vertebral Tenderness, Other (right lumbar L5 to S1 region tenderness to palpation with 3 creation of symptoms) Neurologic/Psychiatric: Alert, Oriented x3, No Motor/Sensory Deficits, Other ( antalgic gait) Progress/Results/Core Measures Results/Orders My Orders Orders - ELIAS RUCKER Ua Culture If Indicated (12/21/17 08:38) Ketorolac Injection (Toradol Injection) (12/21/17 09:15) Fentanyl Injection (Sublimaze Injection (12/21/17 09:15) Orphenadrine Injection (Norflex Injectio (12/21/17 09:15) Prednisone Tablet (Deltasone Tablet) (12/21/17 09:15) Vital Signs/I&O 12/21/17 08:44 Temp 96.9 Pulse 76 Resp 18 B/P (MAP) 173/98 (123) Pulse Ox 96 O2 Delivery Room Air Blood Pressure Mean: 123 Progress Progress Note : Time: 09:15 Progress Note She is on Plavix because of stent so would be pace to avoid long-term NSAIDs. Regarding Adeola shot of Toradol, fentanyl since her pain associated to her and set her up with some Percocet since the hydrocodone's were not helping her. She already has an MRI set up so we'll encourage her to follow up with Dr. Gamble her primary care doctor for further evaluation and management. We have offered to do x-rays of her back but since she has an MRI and a couple hours she has agreed to just wait for the MRI. She has no red flag signs. Departure Impression Primary Impression: Lumbago with sciatica, right side Qualified Codes: M54.41 - Lumbago with sciatica, right side Disposition: 01 HOME, SELF-CARE Condition: Stable Departure-Patient Inst. Decision time for Depature: 09:17 Referrals: ACE GAMBLE MD (PCP/Family) Primary Care Physician Patient Instructions: Low Back Pain (DC) Add. Discharge Instructions: Keep your appointment with MRI at 2:00. Make a follow-up appointment in the next couple days with Dr. Gamble. Use the muscle relaxants, Voltaren gel, Percocet and Tylenol as needed to control your pain. Ice on your back for the first 3 days as well as heat alternated will be helpful. Obtain a back brace and wear it on the days that help. Every day that you're using opiates you should also use a capful of MiraLAX in 6-8 ounces of water to help keep your bowels moving. All discharge instructions reviewed with patient and/or family. Voiced understanding. Scripts Polyethylene Glycol 3350 (Miralax) 17 Gm Powd.pack 17 GM PO DAILY PRN PRN for CONSTIPATION-1ST LINE for 7 Days, #1 EACH 0 Refills Prov: ELIAS RUCKER 12/21/17 Oxycodone HCl/Acetaminophen (Oxycodone-Acetaminophen 5-325) 1 Each Tablet 1-2 EACH PO Q6H PRN for PAIN-MODERATE MDD 6 for 7 Days, #16 TAB 0 Refills Prov: ELIAS RUCKER 12/21/17 Diclofenac Sodium (Voltaren) 100 Gm Gel..gram. 100 GM TP Q6H PRN for BACK PAIN for 7 Days, #1 TUBE 0 Refills Prov: ELIAS RUCKER 12/21/17 Prednisone (Prednisone) 20 Mg Tab 20 MG PO BID for 5 Days, #10 TAB 0 Refills Prov: ELIAS RUCKER 12/21/17 Work/School Note: Work Release Form Date Seen in the Emergency Department: Dec 21, 2017 Return to Work: Dec 23, 2017 Restrictions: No Restrictions Copy Copies To 1: ACE GAMBLE MD, TITUS J Dec 21, 2017 09:18
[2017-12-21] MEDS ORDERED: DICL100G18 TP (09:26)
[2017-12-21] MEDS ORDERED: OXYC-471 PO (09:26)
[2017-12-21] MEDS ORDERED: PRD20T PO (09:26)
[2017-12-21] MEDS ORDERED: POLY17PO6 PO (09:26)
[2017-12-21 09:40] VITALS: BP 173/98
== END 2017-12-21 09:40 | disposition home or self-care (01) ==
LOC: ER 08:34 → EDUNIT# 08:34 → ER 09:40
DX: M54.41 Lumbago with sciatica, right side (principal); Z88.2 Allergy status to sulfonamides; Z88.8 Allergy status to other drugs, medicaments and biological substances; Z79.82 Long term (current) use of aspirin; Z79.02 Long term (current) use of antithrombotics/antiplatelets; Z82.49 Family history of ischemic heart disease and other diseases of the circulatory system; W08.XXXA Fall from other furniture, initial encounter; Y92.59 Other trade areas as the place of occurrence of the external cause; Y99.0 Civilian activity done for income or pay
CPT/HCPCS: 96372; 99284

== ENCOUNTER → 2017-12-21 | Outpatient (CLI) | payer BC ==
[~2017-12-21] MED LIST changes: +DICL100G18 TP; +OXYC-471 PO; +POLY17PO6 PO; +PRD20T PO
--- NOTE | 2017-12-21 15:40 | Diagnostic Imaging Report ---
CLINICAL INDICATION: Patient slipped and fell on 10/2017. A couple of weeks ago, a rolling chair slid out from underneath her and she has had low back pain and right-sided back pain with muscle spasm since. No leg pain. No history of lumbar surgery. EXAM: MRI of the lumbar spine without IV contrast. Sequences include sagittal T2, sagittal T1, sagittal T2 fat-sat, and axial T2. COMPARISON: MRI of the lumbar spine without contrast dated 11/04/2009. FINDINGS: There is interval development of dextroscoliosis of the lumbar spine. There is no evidence of acute lumbar spine fracture or dislocation. The distal thoracic spinal cord, conus medullaris, and cauda equina nerve roots show no significant abnormality. The conus medullaris tip is seen at the L1-L2 intervertebral level. Besides degenerative changes, there is no significant paraspinal soft tissue abnormality. There is progression of multilevel lumbar spine degenerative spurs and facet arthropathy. T11-T12: There is slight increased size of the diffuse disc bulge. There is minimal impression upon the thecal sac anteriorly. T12-L1: Again seen mild diffuse disc bulge which is not significantly changed. L1-L2: There is progression of diffuse disc bulge with mild loss of intervertebral disc height and mild bilateral facet arthropathy. There is mild central canal narrowing which has slightly progressed. There is mild to moderate right neural foramen narrowing and mild left neural foramen narrowing which has progressed. L2-L3: There is progression of diffuse disc bulge with moderate to severe loss of intervertebral disc height involving the left side. There is development of hypertrophic far left lateral disc spurs and moderate to severe bilateral facet arthropathy. There is mild central canal narrowing which has progressed. There is mild right neural foramen narrowing and moderate left neural foramen narrowing which has progressed. L3-L4: There is a diffuse disc bulge with moderate to severe loss of intervertebral disc height which is worse involving the left side with hypertrophic far left lateral disc spurs which have slightly increased. There is moderate bilateral facet arthropathy/hypertrophy. There is severe left neural foramen narrowing and moderate right neural foramen narrowing which has progressed. There is mild central canal narrowing which has minimally progressed. L4-L5: There is progression of a diffuse disc bulge with superimposed right subarticular disc extrusion/herniation and roughly 9 mm of caudal disc migration. The disc herniation component measures roughly 8 mm x 11 mm in greatest axial dimension. There is associated severe right neural foramen narrowing and moderate to severe left neural foramen narrowing. There is mild central canal narrowing. All these findings have progressed. There is also concern for impingement upon the non-exited right L5 nerve root. L5-S1: There is progression of severe bilateral facet arthropathy/hypertrophy. There is degenerative facet effusions at the right side more than left. There are also small synovial cysts extending into the posterior right lumbar soft tissue at the L4-L5 and L5-S1 levels. There is mild periarticular inflammation seen. There is mild right neural foramen narrowing and no significant left neural foramen narrowing. There is ligamentum flavum buckling and degenerative prominence developed in the posterior epidural region which contributes to mild central canal narrowing. IMPRESSION: 1: There is interval progression of multilevel lumbar spine degenerative disease with mild dextroscoliosis which has progressed. 2: There is interval development of L4-5 diffuse disc bulge with superimposed right subarticular disc herniation with caudal disc migration. There is associated severe right neural foramen narrowing, moderate to severe left neural foramen narrowing and mild central canal narrowing at the L4-5 level. There is also concern for impingement upon the non-exited right L5 nerve root. 3: The other levels of degenerative changes are described above. Dictated by: Dictated on workstation # [id number]
== END ==
LOC: RAD 13:35
PROVIDERS: ATTEND Nurse Practitioner Family
DX: M48.061 Spinal stenosis, lumbar region without neurogenic claudication (principal); M51.36 Other intervertebral disc degeneration, lumbar region; M41.86 Other forms of scoliosis, lumbar region; M51.26 Other intervertebral disc displacement, lumbar region; M99.73 Connective tissue and disc stenosis of intervertebral foramina of lumbar region; M71.38 Other bursal cyst, other site; W07.XXXA Fall from chair, initial encounter
CPT/HCPCS: 72148

== ENCOUNTER → 2018-11-02 | Outpatient (CLI) | payer BC ==
[~2018-11-02] MED LIST changes: +DICL100G18 TP; +OXYC-471 PO; +POLY17PO6 PO; +PRD20T PO
--- NOTE | 2018-11-03 07:57 | Diagnostic Imaging Report ---
Digital mammogram Bilateral screening with 3-D tomosynthesis and CAD The study was compared to the prior exams of 11/03/2017, 01/20/2017 and 10/02/2015. At this time there are no current complaints. There are scattered fibroglandular densities in both breasts which could obscure a lesion. Overall, there has been no significant change since the prior exam. The tomographic images do show architectural distortion in both breasts. These findings are similar to the previous exams. By history the patient has had bilateral reduction mammoplasty in the past. There is no primary or secondary sign of malignancy. Impression: There is no evidence of malignancy. ACR BI-RADS Category 1: Negative. Result letter will be mailed to the patient. Note: At least 10% of breast cancer is not imaged by mammography. Dictated by: Dictated on workstation # [id number]
== END ==
LOC: RAD 07:32
PROVIDERS: ATTEND Obstetrics & Gynecology
DX: Z12.31 Encounter for screening mammogram for malignant neoplasm of breast (principal)
CPT/HCPCS: 77067

== ENCOUNTER → 2019-02-06 | Outpatient (CLI) | payer BC ==
[~2019-02-06] MED LIST changes: +ALLO100T PO; +ASPI-999 PO; +BUPR150T9 PO; +CLOP75TA69 PO; +CYCL10TA9 PO; +FAMO40TA72 PO; +FLAX10004 PO; +KRIL1CAP22 PO; +NAPR-1071 PO; +OLME40TA12 PO
--- NOTE | 2019-02-06 16:05 | Diagnostic Imaging Report ---
INDICATION: 63-year-old postmenopausal female. COMPARISON: 11/03/2017 FINDINGS: AP Spine L1-L4: [BMD (g/cm2): 1.598] [T-Score: 3.3] [Z-Score: 3.8] [BMD Previous: 1.526] [BMD % Change: 4.7] LT Hip Neck: [BMD (g/cm2): 0.934] [T-Score: -0.7] [Z-Score: 0.0] LT Hip Total: [BMD (g/cm2):1.029] [T-Score:0.2] [Z-Score: 0.6] [BMD Previous: 1.059] [BMD % Change: -2.8] RT Hip Neck: [BMD (g/cm2):1.033] [T-Score:0.0] [Z-Score:0.7] RT Hip Total: [BMD (g/cm2):1.010] [T-score:0.0] [Z-Score:0.4] [BMD Previous:1.052] [BMD % Change:-4.0] *Indicates significant change from prior examination based on 95% confidence level. World Health Organization criteria for BMD interpretation classify patients as Normal (T-score at or above -1.0), Osteopenic (T-score between -1.0 and -2.5) or Osteoporotic (T-score at or below -2.5). LIMITATIONS AND MODIFICATION: None. IMPRESSION: 1. Normal bone mineral density. 2. No significant change in bone mineral density since prior examination. 3. See below National Osteoporosis Foundation guidelines on when to potentially initiate pharmacologic therapy. Based on the National Osteoporosis Foundation Guidelines, pharmacologic treatment should be initiated in any of the following, unless clinical conditions suggest otherwise: * Any patient with prior fragility fracture of the hip or vertebrae. A spine fracture indicates 5X risk for subsequent spine fracture and 2X risk for subsequent hip fracture. * Osteoporosis (T-score <-2.5). * Postmenopausal women and men age 50 and older with low bone mass/osteopenia (T-score between -1.0 and -2.5) by DXA and 10-year major osteoporotic fracture greater than 20% or a 10-year probability of hip fracture greater than 3%. These fracture risks are supplied above in the FRAX score, if applicable. * Clinician judgement and/or patient preferences may indicate treatment for people with 10-year fracture probabilities above or below these levels. Dictated by: Dictated on workstation # [id number]
== END ==
LOC: RAD 13:18
PROVIDERS: ATTEND Obstetrics & Gynecology
DX: Z13.820 Encounter for screening for osteoporosis (principal); Z78.0 Asymptomatic menopausal state
CPT/HCPCS: 77080

== ENCOUNTER 2019-02-07 05:45 | Outpatient (CLI) | payer BC ==
[~2019-02-07] VITALS: Ht 160 cm; Wt 90.9 kg
[~2019-02-07 05:45] MED LIST changes: -ALLO100T PO; -ASPI-999 PO; -BUPR150T9 PO; -CLOP75TA69 PO; -CYCL10TA9 PO; -FAMO40TA72 PO; -FLAX10004 PO; -KRIL1CAP22 PO; -NAPR-1071 PO; -OLME40TA12 PO
[2019-02-07] MEDS ORDERED: ASPI-999 PO (15:39)
[2019-02-07] MEDS ORDERED: BUPR150T9 PO (15:39)
[2019-02-07] MEDS ORDERED: PITA4TAB2 PO (15:39)
[2019-02-07] MEDS ORDERED: KRIL1CAP22 PO (15:39)
[2019-02-07] MEDS ORDERED: CYCL10TA9 PO (15:39)
[2019-02-07] MEDS ORDERED: CLOP75TA69 PO (15:39)
[2019-02-07] MEDS ORDERED: FLAX10004 PO (15:39)
[2019-02-07] MEDS ORDERED: FAMO40TA72 PO (15:39)
[2019-02-07] MEDS ORDERED: OLME40TA12 PO (15:39)
[2019-02-07] MEDS ORDERED: NAPR-1071 PO (15:39)
[2019-02-07] MEDS ORDERED: CARV12.52 PO (15:39)
[2019-02-07] MEDS ORDERED: ALLO100T PO (15:39)
== END 2019-02-07 15:44 | disposition home or self-care (01) ==
LOC: PREOP 05:45
PROVIDERS: ATTEND Surgery
DX: Z01.818 Encounter for other preprocedural examination (principal)

== ENCOUNTER → 2019-02-14 | Day surgery (SDC) | payer BC ==
--- NOTE | 2019-01-29 09:17 | HISTORY AND PHYSICAL ---
DATE OF SERVICE: ATTENDING PRIMARY CARE PHYSICIAN: Dr. Gamble. HISTORY OF PRESENT ILLNESS: The patient is a 63-year-old female who was referred over to us in need of a screening colonoscopy. The patient reports that her last colonoscopy was in 2007, which was normal. She reports since that time, she denies any blood in her stool and denies any family history of colon cancer. She denies any diarrhea, constipation or any abdominal pain. PAST MEDICAL HISTORY: Hypertension, coronary artery disease, depression, hypercholesterolemia, gastroesophageal reflux disease, tension headache, myocardial infarction x2 in 2003 and 2007. PAST SURGICAL HISTORY: x2 in 1982 and 1984, right knee arthroscopy in 1988, tubal ligation in 1990, bilateral breast reduction in 1992, right knee arthroscopy 1994, uvulectomy 1996, cardiac catheterization with stent placed in 2002, 2003, laparoscopic cholecystectomy in 2002, EGD in 2003, shockwave therapy to her bilateral feet for heel spurs in 2003, cardiac catheterization in 2007, colonoscopy in 2007, right total knee replacement in 2012, right rotator cuff repair in 2013, cardiac catheterization again in 2013. ALLERGIES: SULFA, VASOTEC, ENALAPRIL. MEDICATIONS: Aspirin 81 mg 2 tablets b.i.d., Benicar 40 mg daily, Coreg 12.5 mg b.i.d., Livalo 4 mg at bedtime, Pepcid 20 mg b.i.d., Plavix 75 mg daily, Wellbutrin 150 mg b.i.d., calcium titrate with vitamin D two tablets daily, flaxseed oil b.i.d., folic acid 800 mg b.i.d., omega red b.i.d., naproxen 550 mg b.i.d. p.r.n., Norflex 100 mg b.i.d. p.r.n. SOCIAL HISTORY: Negative for smoking, negative for alcohol. FAMILY HISTORY: Mother arthritis, hypertension, and coronary artery disease. Father, coronary artery disease, hypertension. VITAL SIGNS: Stable. Current weight is 214.7, height 5 feet 3 inches. REVIEW OF SYSTEMS: Well-nourished female, in no acute distress. She is not experiencing any shortness of breath or difficulty breathing. No chest pain, palpitations or diaphoresis. No nausea, vomiting or abdominal pain. No diarrhea or constipation. No red blood per rectum. No dark tarry stools. No fever or chills. No recent inadvertent weight loss. All other review of systems negative. PHYSICAL EXAMINATION: CHEST: Clear. Good breath sounds bilaterally. HEART: Regular, no murmurs. EXTREMITIES: No lower extremity edema. Negative Homans sign. HEENT: No scleral icterus. No cervical lymphadenopathy. ABDOMEN: Soft, nontender, nondistended. SKIN: Warm, dry and pink. NEUROLOGIC: Awake, alert and oriented x3. ASSESSMENT AND PLAN: A 63-year-old female who is in need of a screening colonoscopy. The risks and benefits of the procedure as well as the procedure and home care instructions were explained to the patient. The patient verbalized understanding of instructions and agrees to proceed as planned. At this time, we will proceed with scheduling the patient for a screening colonoscopy. Job ID: [id number] DocumentID: [id number] Dictated Date: 01/19/2019 10:10:00 Wool Hat Forming Machine Tender Date: 01/19/2019 10:31:45 Dictated By: MORIAH GORDON APRN
[~2019-02-14] MED LIST changes: +ACETAMINOPHEN 325 MG TABLET PO PRN; +ALLO100T PO; +ASPI-999 PO; +BUPR150T9 PO; +CLOP75TA69 PO; +CYCL10TA9 PO; +FAMO40TA72 PO; +FLAX10004 PO; +HURRICAINE EXT TUBE (BENZOCAINE) XX PRN; +HYDROcodone/APAP 5 MG/325 MG (LORTAB) TAB PO PRN; +KRIL1CAP22 PO; +LACTATED RINGERS 1,000 ML IV ONE; +LACTATED RINGERS 1,000 ML IV STA; +LIDOCAINE JELLY 2% 6 ML SYRINGE MM PRN; +MIDAZOLAM 2 MG/2 ML (VERSED) VIAL ONE; +MIDAZOLAM 5 MG/5 ML (VERSED) VIAL IV PRN; +NAPR-1071 PO; +NS IV 500 ML 500 ML IV PRN; +OLME40TA12 PO; +ONDANSETRON 4 MG/2 ML (SDV) Z0FRAN IVP PRN; +PROPOFOL INJECTION 50 ML IV ONE; +fentaNYL INJECTION 100 MCG/2 ML AMP IVP ONE; +morphine INJ 10 MG/ML 1ML (SYR OR VIAL) IVP PRN
[2019-02-14 09:37] VITALS: BP 125/65
--- NOTE | 2019-02-14 10:47 | Conscious Sedation/ASA ---
Conscious Sedation Pre-Proced Time 10:00 ASA Score 2 For ASA 3 and 4: Consider anesthesia and medical clearance. Also, for patients with a history of failed moderate sedation consider anesthesia. Airway Lungs Heart ASA score ASA 1: a normal healthy patient ASA 2: a patient with a mild systemic disease (mid diabetes, controlled hypertension, obesity ASA 3: a patient with a severe systemic disease that limits activity (angina, COPD, prior Myocardial infarction) ASA 4: a patient with an incapacitating disease that is a constant threat to life (CHF, renal failure) ASA 5: a moribund patient not expected to survive 24 hrs. (ruptured aneurysm) ASA 6: a declared brain- patient whose organs are being harvested. For emergent operations, add the letter E after the classification Mallampati Classification Grade 2 Sedation Plan Analgesia, Amnesia, Plan communicated to team members, Discussed options with patient/fam, Discussed risks with patient/fam The patient is an appropriate candidate to undergo the planned procedure, sedation, and anesthesia. The patient immediately re-assessed prior to indication. DELISA OMER MD Feb 14, 2019 10:47 POS
--- NOTE | 2019-02-14 10:48 | Progress Note-Pre Operative ---
Pre-Operative Progress Note H&P Reviewed The H&P was reviewed, patient examined and no changes noted. Date Seen by Provider: Feb 14, 2019 Time Seen by Provider: 10:00 Date H&P Reviewed: Feb 14, 2019 Time H&P Reviewed: 10:00 Pre-Operative Diagnosis: screening DELISA Eli MD Feb 14, 2019 10:48 POS
--- NOTE | 2019-02-14 10:49 | Discharge Inst-Surgical ---
D/C Lap Instructions-KAN Follow Up Activity as tolerated High Fiber Diet 25g or more per day Avoid Alcohol, Caffeine, Spicy Cando and Acid foods. Drink 64 fluid oz or more of fluids per day. Symptoms to Report: Fever over 101 degree F, Nausea/Vomiting If any problems/questions: Contact your physician or go to Emergency Room DELISA OMER MD Feb 14, 2019 10:49 POS
[2019-02-14 11:15] VITALS: BP 101/59
--- NOTE | 2019-02-14 11:19 | Progress Note-Post Operative ---
Post-Operative Progess Note Surgeon (s)/Beauty Sales Consultant (s) Surgeon DELISA OMER MD Beauty Sales Consultant: none Pre-Operative Diagnosis screening colo Post-Operative Diagnosis normal colon and rectum Procedure & Operative Findings Date of Procedure 02/14/19 Procedure Performed/Findings colonoscopy Anesthesia Type mac Estimated Blood Loss Estimated blood loss (mL): minimal Specimens/Packing Specimens Removed none DELISA OMER MD Feb 14, 2019 11:19 POS
[2019-02-14 11:40] VITALS: BP 117/83
[2019-02-14 11:47] VITALS: BP 117/83
--- NOTE | 2019-02-14 19:45 | OPERATIVE REPORT ---
DATE OF SERVICE: 02/14/2019 ATTENDING PRIMARY CARE PHYSICIAN: Dr. Gamble. PREOPERATIVE DIAGNOSIS: Screening colonoscopy. POSTOPERATIVE DIAGNOSIS: Normal colon and rectum. PROCEDURE: Colonoscopy. SURGEON: Delisa Omer MD. ANESTHESIA: Monitored anesthesia care. ESTIMATED BLOOD LOSS: Minimal. FINDINGS: Normal colon and rectum. No polyps or any neoplasms identified. DISPOSITION: The patient tolerated the procedure well. INDICATIONS: The patient is a 63-year-old female in need of a screening colonoscopy. Her last colonoscopy was in 2007, which was normal. She is doing well otherwise and does not report any major issues with diarrhea nor constipation as well as no red blood per rectum nor any dark tarry stools. She also does not have any family history of colon cancer. DESCRIPTION OF PROCEDURE: The patient was brought to the endoscopy suite, laid in left lateral decubitus position. After adequate IV pain and sedating medications and monitored anesthesia care, a digital rectal examination was performed. No significant hemorrhoids were identified. Normal sphincter tone was felt and there were no palpable masses. The endoscope was then intubated to the anus and rectum gently insufflated. The endoscope was then advanced through the valves of Vicente of the rectum with no polyps or any neoplasms identified. We then proceeded through the sigmoid colon where no diverticulosis identified. The endoscope was then advanced to the remainder of the descending, transverse and ascending colon to the cecum. These segments were normal. There were no polyps nor any neoplasms identified throughout the colon or rectum. Endoscope was then slowly withdrawn while taking a second look and suctioning of residual air with no additional findings. The patient tolerated the procedure well. We will recommend continued medical management with a high fiber diet with 25 grams of fiber daily as well as significant amounts of water to promote soft stools on a daily basis. She does not need another colonoscopy for another 10 years. Job ID: [id number] DocumentID: [id number] Dictated Date: 02/14/2019 11:16:30 Tactical Air Control Party Manager Date: 02/14/2019 19:44:20 Dictated By: DELISA OMER MD
--- NOTE | 2019-02-15 08:46 | Anesthesia-General Post-Op ---
MAC Patient Condition Mental Status/LOC: Same as Preop Cardiovascular: Satisfactory Nausea/Vomiting: Absent Respiratory: Satisfactory Pain: Controlled Complications: Absent Post Op Complications Complications None Follow Up Care/Instructions Patient Instructions None needed. Anesthesiology Discharge Order Discharge Order late entry 02/14/19 1145: Patient is doing well, no complaints, stable vital signs, no apparent adverse anesthesia problems. No complications reported per nursing. CHRISTIANO CARDOZA CRNA Feb 15, 2019 08:46 POS
== END ==
LOC: ENDO 08:49
PROVIDERS: ATTEND Surgery
DX: Z12.11 Encounter for screening for malignant neoplasm of colon (principal); K21.9 Gastro-esophageal reflux disease without esophagitis; I10 Essential (primary) hypertension; I25.10 Atherosclerotic heart disease of native coronary artery without angina pectoris; E78.00 Pure hypercholesterolemia, unspecified; I25.2 Old myocardial infarction; F32.9 Major depressive disorder, single episode, unspecified; Z98.51 Tubal ligation status; Z95.1 Presence of aortocoronary bypass graft; Z90.49 Acquired absence of other specified parts of digestive tract; Z79.82 Long term (current) use of aspirin; Z79.02 Long term (current) use of antithrombotics/antiplatelets; Z79.899 Other long term (current) drug therapy; Z82.49 Family history of ischemic heart disease and other diseases of the circulatory system

== ENCOUNTER → 2019-03-14 | Outpatient (CLI) | payer BC ==
[~2019-03-14] MED LIST changes: -ACETAMINOPHEN 325 MG TABLET PO PRN; -HURRICAINE EXT TUBE (BENZOCAINE) XX PRN; -HYDROcodone/APAP 5 MG/325 MG (LORTAB) TAB PO PRN; -LACTATED RINGERS 1,000 ML IV ONE; -LACTATED RINGERS 1,000 ML IV STA; -LIDOCAINE JELLY 2% 6 ML SYRINGE MM PRN; -MIDAZOLAM 2 MG/2 ML (VERSED) VIAL ONE; -MIDAZOLAM 5 MG/5 ML (VERSED) VIAL IV PRN; -NS IV 500 ML 500 ML IV PRN; -ONDANSETRON 4 MG/2 ML (SDV) Z0FRAN IVP PRN; -PROPOFOL INJECTION 50 ML IV ONE; -fentaNYL INJECTION 100 MCG/2 ML AMP IVP ONE; -morphine INJ 10 MG/ML 1ML (SYR OR VIAL) IVP PRN
--- NOTE | 2019-03-14 17:37 | Diagnostic Imaging Report ---
INDICATION: Pain. FINDINGS: There is moderate osteoarthritic change in the first metatarsophalangeal joint. There are degenerative changes in the mid foot. There is no acute fracture or dislocation. Soft tissues are unremarkable. IMPRESSION: Degenerative changes, otherwise unremarkable. Dictated by: Dictated on workstation # [id number]
== END ==
LOC: RAD 17:14
PROVIDERS: ATTEND Nurse Practitioner Family
DX: M19.072 Primary osteoarthritis, left ankle and foot (principal)
CPT/HCPCS: 73630

== ENCOUNTER → 2019-12-12 | Outpatient (CLI) | payer BC ==
--- NOTE | 2019-12-12 12:02 | Diagnostic Imaging Report ---
INDICATION: Routine screening. Comparison is made with prior mammogram 11/02/2018 and 11/03/2017. 2-D and 3-D bilateral screening mammography was performed with CAD. Scattered fibroglandular densities are identified bilaterally. Postsurgical changes are again noted bilaterally. Patient reportedly has had reduction mammoplasty. No discrete mass or malignant appearing microcalcifications are seen. There are benign calcifications bilaterally. Axillae are unremarkable. IMPRESSION: BI-RADS Category 2 No mammographic features suspicious for malignancy are identified. Dictated by: Dictated on workstation # [id number]
== END ==
LOC: RAD 10:23
PROVIDERS: ATTEND Obstetrics & Gynecology
DX: Z12.31 Encounter for screening mammogram for malignant neoplasm of breast (principal)
CPT/HCPCS: 77063; 77067

== ENCOUNTER → 2020-07-29 | Outpatient (CLI) | payer BC ==
[~2020-07-29] MED LIST changes: -ISOS30TA3 PO; +ISOS30TA82 PO; -OXYC-471 PO; +OXYC1TAB11 PO
== END ==
LOC: CARD 12:10
PROVIDERS: ATTEND Internal Medicine Cardiovascular Disease
DX: I51.7 Cardiomegaly (principal); I34.0 Nonrheumatic mitral (valve) insufficiency
CPT/HCPCS: 93306

== ENCOUNTER → 2020-08-05 | Outpatient (CLI) | payer BC ==
[~2020-08-05] VITALS: Ht 165 cm; Wt 91.0 kg
[~2020-08-05] MED LIST changes: +CATHETER FLUSH 10 ML SYR IV PRN; +REGADENOSON 0.4 MG/5 ML SYR (LEXISCAN) IV ONE
[2020-08-05 09:13] VITALS: BP 149/59
--- NOTE | 2020-08-06 13:56 | STRESS TEST ---
DATE OF SERVICE: 08/05/2020 RESTING AND POST REGADENOSON TECHNETIUM-99M TETROFOSMIN SPECT CT IMAGING ORDERING PHYSICIAN: Dr. Paul. PRIMARY PHYSICIAN: Dr. Gamble. CLINICAL DIAGNOSIS: Coronary artery disease. Baseline images were carried out after injection of 11 mCi of technetium-99m Tetrofosmin. This was followed by 0.4 mg of regadenoson and 33 mCi of technetium-99m Tetrofosmin for stress imaging. The electrocardiogram showed sinus rhythm at baseline. Old septal wall myocardial infarction cannot be excluded on the electrocardiogram. The electrocardiogram did not change significantly with regadenoson infusion. The patient noted some shortness of breath following regadenoson infusion, which resolved in a few minutes. Review of images at rest and following stress does not indicate any distinct perfusion defects consistent with significant myocardial ischemia or infarction. Gated images show normal global left ventricular systolic function with normal regional wall motion. Left ventricular ejection fraction calculated to be 85%. Left ventricular end diastolic volume is 62 mL. TID is absent (1.02). CONCLUSIONS: 1. No evidence of any significant myocardial ischemia or infarction on this study. 2. Normal to hyperdynamic left ventricular systolic function with an ejection fraction of 85%. 3. No significant regional wall motion abnormality is seen. Job ID: [id number] DocumentID: [id number] Dictated Date: 08/06/2020 12:43:40 Scruff Worker Date: 08/06/2020 13:54:58 Dictated By: LEO PAUL MD, MA, FACP, FACC,
== END ==
LOC: CARD 08:15
PROVIDERS: ATTEND Internal Medicine Cardiovascular Disease
DX: I25.10 Atherosclerotic heart disease of native coronary artery without angina pectoris (principal)
CPT/HCPCS: 78452; 93017; A9502

== ENCOUNTER → 2020-12-16 | Outpatient (CLI) | payer BC ==
[~2020-12-16] MED LIST changes: -CATHETER FLUSH 10 ML SYR IV PRN; -REGADENOSON 0.4 MG/5 ML SYR (LEXISCAN) IV ONE
--- NOTE | 2020-12-16 18:40 | Diagnostic Imaging Report ---
INDICATION: Routine screening. COMPARISON is made with prior mammograms from 12/12/2019 and 11/02/2018. 2-D and 3-D bilateral screening mammography was performed with CAD. Scattered fibroglandular densities are identified bilaterally. The parenchymal pattern is stable. No mass or malignant-appearing microcalcifications are seen. There are scattered benign calcifications in both breasts. The axillae are unremarkable. IMPRESSION: BI-RADS Category 2 No mammographic features suspicious for malignancy are identified. ACR BI-RADS Category 2: Benign findings. Result letter will be mailed to the patient. Note: At least 10% of breast cancer is not imaged by mammography. Dictated by: Dictated on workstation # [id number]
== END ==
LOC: RAD 08:15
PROVIDERS: ATTEND Obstetrics & Gynecology
DX: Z12.31 Encounter for screening mammogram for malignant neoplasm of breast (principal)
CPT/HCPCS: 77063; 77067

== ENCOUNTER → 2021-07-20 | Outpatient (CLI) | payer BC ==
[~2021-07-20] MED LIST changes: +CYCL10TA25 PO; -CYCL10TA9 PO
--- NOTE | 2021-07-20 14:12 | Diagnostic Imaging Report ---
INDICATION: Cough. Comparison with 09/08/2018. FINDINGS: PA and lateral views. Lungs are well-aerated and clear. There is no air-trapping. The heart is not enlarged. No pulmonary edema or hilar adenopathy. No pneumothorax or pleural effusion. No bony abnormalities. IMPRESSION: Normal PA and lateral chest. Dictated by: Dictated on workstation # [id number]
== END ==
LOC: RAD 11:36
PROVIDERS: ATTEND Family Medicine
DX: R05.9 Cough, unspecified (principal)
CPT/HCPCS: 71046

== ENCOUNTER → 2021-12-29 | Outpatient (CLI) | payer BC ==
[~2021-12-29] MED LIST changes: -OLME40TA12 PO; +OLME40TA70 PO
--- NOTE | 2021-12-29 08:49 | Diagnostic Imaging Report ---
INDICATION: Postmenopausal state. COMPARISON: 02/06/2019 FINDINGS: AP Spine L1-L4: [BMD (g/cm2): 1.426] [T-Score: 1.9] [Z-Score: 2.6] [BMD Previous: 1.598] [BMD % Change: -10.8]* LT Hip Neck: [BMD (g/cm2): 0.926] [T-Score: -0.8] [Z-Score: 0.1] LT Hip Total: [BMD (g/cm2):1.050] [T-Score:0.3] [Z-Score: 0.9] [BMD Previous: 1.029] [BMD % Change: 2.0] RT Hip Neck: [BMD (g/cm2):0.961] [T-Score:-0.6] [Z-Score:0.4] RT Hip Total: [BMD (g/cm2):1.009] [T-score:0.0] [Z-Score:0.6] [BMD Previous:1.010] [BMD % Change:-0.1] *Indicates significant change from prior examination based on 95% confidence level. World Health Organization criteria for BMD interpretation classify patients as Normal (T-score at or above -1.0), Osteopenic (T-score between -1.0 and -2.5) or Osteoporotic (T-score at or below -2.5). LIMITATIONS AND MODIFICATION: None. IMPRESSION: 1. Normal bone mineral density. 2. Bone mineral density within the lumbar spine has significantly decreased since the prior examination. Bone mineral density within the bilateral hips has not significantly changed. 3. See below National Osteoporosis Foundation guidelines on when to potentially initiate pharmacologic therapy. Based on the National Osteoporosis Foundation Guidelines, pharmacologic treatment should be initiated in any of the following, unless clinical conditions suggest otherwise: * Any patient with prior fragility fracture of the hip or vertebrae. A spine fracture indicates 5X risk for subsequent spine fracture and 2X risk for subsequent hip fracture. * Osteoporosis (T-score <-2.5). * Postmenopausal women and men age 50 and older with low bone mass/osteopenia (T-score between -1.0 and -2.5) by DXA and 10-year major osteoporotic fracture greater than 20% or a 10-year probability of hip fracture greater than 3%. These fracture risks are supplied above in the FRAX score, if applicable. * Clinician judgement and/or patient preferences may indicate treatment for people with 10-year fracture probabilities above or below these levels. Dictated by: Dictated on workstation # [id number]
--- NOTE | 2021-12-29 14:47 | Diagnostic Imaging Report ---
INDICATION: Routine screening. Comparison is made with prior mammogram 12/16/2020 and 12/12/2019. 2-D and 3-D bilateral screening mammography was performed with CAD. Scattered fibroglandular densities are identified bilaterally. The breast parenchymal pattern appears stable. No mass or malignant-appearing microcalcifications are seen. Axillae are unremarkable. IMPRESSION: No mammographic features suspicious for malignancy are identified. ACR BI-RADS Category 1: Negative. Result letter will be mailed to the patient. Note: At least 10% of breast cancer is not imaged by mammography. BI-RADS Category 1 Dictated by: Dictated on workstation # [id number]
== END ==
LOC: RAD 08:15
PROVIDERS: ATTEND Family Medicine
DX: Z12.31 Encounter for screening mammogram for malignant neoplasm of breast (principal); Z78.0 Asymptomatic menopausal state
CPT/HCPCS: 77063; 77067; 77080

== ENCOUNTER 2022-12-23 10:23 | Emergency (ER) | payer BC, MEDICARE ==
[~2022-12-23] VITALS: Ht 165 cm; Wt 91.0 kg
[~2022-12-23 10:23] MED LIST changes: +CLOP-31 PO; -CLOP75TA69 PO
--- NOTE | 2022-12-23 11:25 | ED Fall/Injury ---
General Chief Complaint: Trauma-Non Activation Stated Complaint: FALL | NOSE INJ | LT SHOULDER AND LT HAND INJ Nursing Triage Note: PT STATES A FALL ON CONCRETE YESTERDAY AT 0615, CC OF NOSE ABRASION AND LT HAND/WRIST AND SHOULDER PAIN. TAKES PLAVIX AND ASA. TRIPPED OVER A BOARD. TRYING TO REMOVE RING ON LT HAND AT [facility], HAND AND FINGERS ARE SWOLLEN Source: patient Exam Limitations: no limitations History of Present Illness Date Seen by Provider: Dec 23, 2022 Time Seen by Provider: 10:27 Initial Comments 67-year-old female that is left hand dominant coming in after she tripped yesterday in the morning. She hit her face and noticed an abrasion to her nose and some swelling. Having significant left hand pain and left shoulder pain. She does take Plavix and aspirin. She is concerned that the ring finger is swollen and she cannot get her ring off. Allergies and Home Medications Allergies Coded Allergies: Sulfa (Sulfonamide Antibiotics) (Unverified Allergy, Mild, RASH/SWELLING, 02/07/19) enalapril (Unverified Adverse Reaction, Mild, COUGH, 02/07/19) Patient Home Medication List Home Medication List Reviewed: Yes Allopurinol (Allopurinol) 100 Mg Tablet, 100 MG PO DAILY, (Reported) Entered as Reported by: JOSE GIBSON on 02/07/19 153 Aspirin (Aspirin) 81 Mg Tab.chew, 160 MG PO BID, (Reported) Entered as Reported by: JOSE GIBSON on 02/07/19 153 Bupropion HCl (Wellbutrin Sr) 150 Mg Tablet.er, 150 MG PO BID, (Reported) Entered as Reported by: JOSE GIBSON on 02/07/19 153 Carvedilol (Coreg) 12.5 Mg Tablet, 12.5 MG PO DAILY, (Reported) Entered as Reported by: JOSE GIBSON on 02/07/191538 Clopidogrel Bisulfate (Plavix) 75 Mg Tablet, 75 MG PO DAILY, (Reported) Entered as Reported by: JOSE GIBSON on 02/07/191538 Cyclobenzaprine HCl (Cyclobenzaprine HCl) 10 Mg Tablet, 10 MG PO BID PRN for MUSCLE CRAMPS, (Reported) Entered as Reported by: OJSE GIBSON on 02/07/191538 Famotidine (Pepcid) 40 Mg Tablet, 40 MG PO BID, (Reported) Entered as Reported by: JOSE GIBSON on 02/07/191538 Flaxseed Oil (Flaxseed Oil) 1,000 Mg Capsule, 1,000 MG PO BID, (Reported) Entered as Reported by: JOSE GIBSON on 02/07/191538 Krill/Om-3/Dha/Epa/Phospho/Ast (Megared Hollis-3 Krill Oil Sfgl) 1 Each Capsule, 1 EACH PO BID, (Reported) Entered as Reported by: JOSE GIBSON on 02/07/191538 Naproxen (Naprosyn) 500 Mg Tablet, 500 MG PO BID PRN for PAIN-MILD (1-4), (Reported) Entered as Reported by: JOSE GIBSON on 02/07/191538 Olmesartan Medoxomil (Benicar) 40 Mg Tablet, 40 MG PO DAILY, (Reported) Entered as Reported by: JOSE GIBSON on 02/07/191538 Pitavastatin Calcium (Livalo) 4 Mg Tablet, 4 MG PO DAILY, (Reported) Entered as Reported by: JOSE GIBSON on 02/07/191538 Review of Systems Review of Systems Constitutional: No fever Eyes: No Symptoms Reported Ears, Nose, Mouth, Throat: no symptoms reported Respiratory: no symptoms reported Cardiovascular: no symptoms reported Gastrointestinal: no symptoms reported Genitourinary: no symptoms reported Musculoskeletal: see HPI Skin: no symptoms reported Psychiatric/Neurological: No Symptoms Reported All Other Systems Reviewed Negative Unless Noted: Yes Past Xnsbwlq-Ygyjcb-Rbjjbp Hx Patient Social History Tobacco Use?: No Substance use?: No Alcohol Use?: No Immunizations Up To Date Tetanus Booster (TDap): Less than 5yrs PED Vaccines UTD: Yes Third COVID19 Vaccination Date: YES Seasonal Allergies Seasonal Allergies: Yes (MILD) Past Medical History Surgery/Hospitalization HX: CAD, STENTS, RT KNEE REPLACED, CHARLEY, HTN Surgeries: Yes (BREAST REDUC, ACL R KNEE, UVULECTOMY, SHOCK WAVE THERAPY FEET, ROTATOR CUFF) Gallbladder, Tubal Ligation Respiratory: Yes Sleep Apnea Currently Using CPAP: Yes Cardiac: Yes (ND X3, STENTS X3) Coronary Artery Disease, Heart Attack, High Cholesterol, Hypertension Neurological: No Reproductive Disorders: No Sexually Transmitted Disease: No HIV/AIDS: No Genitourinary: No Gastrointestinal: Yes Gastroesophageal Reflux Musculoskeletal: Yes Arthritis Endocrine: No HEENT: Yes (GLASSES) Loss of Vision: Denies Hearing Impairment: Denies Cancer: No Psychosocial: Yes Depression Integumentary: No Blood Disorders: No Adverse Reaction/Blood Tranf: No (N/A) Family Medical History Dementia 03 FATHER Family history: Arthritis 03 MOTHER 09 BROTHER Family history: Cardiovascular disease 03 FATHER 03 MOTHER Family history: Diabetes mellitus Family history: Hypertension 03 MOTHER 09 SISTER Physical Exam Vital Signs Vital Signs - First Documented 12/23/22 10:57 Temp 36.6 Pulse 76 Resp 18 B/P (MAP) 169/93 (118) Pulse Ox 97 O2 Delivery Room Air Capillary Refill : Less Than 3 Seconds Height, Weight, BMI Height: 5'4.00" Weight: 200lbs. 0.0oz. 90.409309nz; 33.00 BMI Method:Stated General Appearance: WD/WN, no apparent distress HEENT: PERRL/EOMI, normal ENT inspection, pharynx normal, other (nasal swelling and abrasion) Neck: non-tender, full range of motion, supple, normal inspection Cardiovascular: regular rate, rhythm, no edema Respiratory: chest non-tender, lungs clear, normal breath sounds, no respiratory distress, no accessory muscle use Gastrointestinal: normal bowel sounds, non tender, soft; No distended, No guarding, No rebound Back: normal inspection, no CVA tenderness, no vertebral tenderness Extremities: no calf tenderness, normal capillary refill, swelling, other (And tenderness with swelling, ring stuck on with left ring finger swelling, posterior shoulder pain and discomfort with range of motion, neurovascularly intact distal) Neurologic/Psychiatric: no motor/sensory deficits, alert, normal mood/affect, oriented x 3 Skin: normal color, warm/dry Progress/Results/Core Measures Results/Orders My Orders Orders - SHAQ CARR MD Ct Head/Face/Cervical Wo (12/23/22 11:07) Shoulder, Left, 3 Views (12/23/22 11:07) Hand, Left, 3 Views (12/23/22 11:07) Vital Signs/I&O 12/23/22 10:57 Temp 36.6 Pulse 76 Resp 18 B/P (MAP) 169/93 (118) Pulse Ox 97 O2 Delivery Room Air Blood Pressure Mean: 118 Progress Progress Note : Progress Note 67-year-old female presenting after a ground-level fall. ABCs were intact and vitals were stable on presentation. Physical exam was significant swelling to the left hand and pain with range of motion of the left shoulder. She is spencer rovascularly intact. She has an abrasion and some swelling to her nose as well. Given her age, CT head, cervical spine and max face ordered and interpreted by me showing no obvious intracranial hemorrhage or cervical spine fracture. Per the radiologist, she does have a right-sided nasal bone fracture that is nondisplaced. We will have her follow-up with ENT in regards to this. The x- ray of the hand and shoulder my interpretation show no fracture or dislocation. Given how swollen her hand is, we will do a prefabricated splint with an Haroon wrap and have her follow-up with orthopedics for repeat x-ray in the next week or 2. I believe she stable for discharge with outpatient follow-up. She was sent home with strict return precautions. We also cut off the ring on her left ring finger. Diagnostic Imaging Diagonstic Imaging: Xray (left hand and shoulder), CT (head, face, c spine) Comments [facility], [place] NAME: MARCO MACIEL [facility] REC#: [id number] PT STATUS: REG ER : 1955 PHYSICIAN: SHAQ CARR MD ADMIT DATE: 12/23/22/ER Draft Date of Exam:12/23/22 HAND, LEFT, 3 VIEWS EXAMINATION: Left hand radiographs, 3 views. COMPARISON: None. HISTORY: 67-year-old female, left hand pain after a fall. FINDINGS: There is chondrocalcinosis. There is mild distal radial ulnar arthritis. There is moderate to severe osteoarthritis of the first carpometacarpal joint. There is arthritis at the first interphalangeal joint and second through fifth distal interphalangeal joints. There is soft tissue swelling dorsally at the level of the metacarpals. There is no identified acute fracture. IMPRESSION: 1. No identified acute bony abnormality in the left hand. 2. Nonspecific soft tissue swelling dorsally at the level of the metacarpals. 3. Multifocal arthritis, as above. Dictated on workstation # [id number] Dict: 12/23/22 1154 Trans: 12/23/22 1204 [facility] [id number] Interpreted by: WENDY PRATHER MD Electronically signed by: [facility] [employer] [facility] [place], [place] NAME: MARCO MACIEL [facility] REC#: [id number] PT STATUS: REG ER : 1955 PHYSICIAN: SHAQ CARR MD ADMIT DATE: 12/23/22/ER Draft Date of Exam:12/23/22 SHOULDER, LEFT, 3 VIEWS EXAMINATION: Left shoulder radiographs, 3 views. COMPARISON: None. HISTORY: 67-year-old female, left shoulder pain after a fall. FINDINGS: The humeral head is normally positioned relative to the glenoid. There is mild glenohumeral joint space loss with osteophyte formation. The acromioclavicular joint is unremarkable in alignment. There are mild acromioclavicular degenerative changes. There is no identified acute fracture. There are degenerative changes of the cervical spine. IMPRESSION: 1. No identified acute bony abnormality of the left shoulder. 2. Mild glenohumeral osteoarthritis and mild acromioclavicular degenerative changes. Dictated on workstation # [id number] Dict: 12/23/22 1153 Trans: 12/23/22 1206 [facility] [id number] Interpreted by: WENDY PRATHER MD Electronically signed by: [employer] [facility] [place], [place] NAME: MARCO MACIEL [facility] REC#: [id number] PT STATUS: REG ER : 1955 PHYSICIAN: SHAQ CARR MD ADMIT DATE: 12/23/22/ER Draft Date of Exam:12/23/22 CT HEAD/FACE/CERVICAL WO PROCEDURE: CT head, face, and cervical spine without contrast. TECHNIQUE: Multiple contiguous axial images were obtained through the head, neck, and facial bones without the use of intravenous contrast. Sagittal and coronal reformations through the cervical spine and facial bones were also performed. Auto Exposure Controls were utilized during the CT exam to meet ALARA standards for radiation dose reduction. INDICATION: Trauma, fall with head, face, and neck pain as well as nasal swelling. FINDINGS: CT HEAD: Ventricles and sulci are prominent, consistent with cerebral volume loss. No sulcal effacement or midline shift is identified. No acute intra-axial or extra-axial hemorrhage is detected. Cisterns are patent. Visualized paranasal sinuses are clear. IMPRESSION: Cerebral atrophy. No acute intracranial process is identified. CT CERVICAL SPINE: There is reversal of the normal cervical lordotic curvature. Minimal anterolisthesis of C3 on C4, C4 on C5 and C5 on C6 is noted. There is severe multilevel degenerative disc disease with variable disc space narrowing and marginal spurring, most marked at C5-C6, C6-C7 and C7-T1 levels. No fractures are identified. Prevertebral tissues are within normal limits. Odontoid is intact. IMPRESSION: Cervical spondylosis and multilevel listheses. No acute bony abnormality is detected. CT FACE: The mandible is intact. Zygomatic arches are intact. Maxillary sinus marino are intact. There does appear to be a fracture of the right nasal bone without significant displacement. Nasal septum is intact. Orbital marino appear to be intact. Globes are unremarkable. IMPRESSION: Right nasal bone fracture. No other significant abnormality is detected. Dictated on workstation # [id number] Dict: 12/23/22 1204 Trans: 12/23/22 1213 AS6 [id number] Interpreted by: TARAS ANTOINE MD Electronically signed by: Departure Impression Primary Impression: Hand pain, left Additional Impressions: Shoulder pain Qualified Codes: M25.512 - Pain in left shoulder Fall Qualified Codes: W19.XXXA - Unspecified fall, initial encounter Nasal fracture Qualified Codes: S02.2XXA - Fracture of nasal bones, initial encounter for closed fracture Disposition: 01 HOME, SELF-CARE Condition: Stable Departure-Patient Inst. Decision time for Depature: 12:35 Referrals: RACHEAL FARIAS MD, HOLLY A MD (PCP/Family) Primary Care Physician Patient Instructions: Nose Fracture ED Add. Discharge Instructions: There is no obvious fracture on the x-ray for your hand or shoulder. However, since your hand was so swollen, we would like you to follow-up with the orthopedist of your choosing for repeat evaluation. They can also look at your shoulder which you were weak and had pain with testing of your supraspinatus which is one of the rotator cuff muscles. The CT of your head and face showed a fracture of your nose which is nondisplaced. You can follow-up with Dr. Farias for this. Work/School Note: Work Release Form Date Seen in the Emergency Department: Dec 23, 2022 Return to Work: Dec 24, 2022 Restrictions: No Restrictions SHAQ CARR MD Dec 23, 2022 11:25
--- NOTE | 2022-12-23 12:04 | Diagnostic Imaging Report ---
EXAMINATION: Left hand radiographs, 3 views. COMPARISON: None. HISTORY: 67-year-old female, left hand pain after a fall. FINDINGS: There is chondrocalcinosis. There is mild distal radial ulnar arthritis. There is moderate to severe osteoarthritis of the first carpometacarpal joint. There is arthritis at the first interphalangeal joint and second through fifth distal interphalangeal joints. There is soft tissue swelling dorsally at the level of the metacarpals. There is no identified acute fracture. IMPRESSION: 1. No identified acute bony abnormality in the left hand. 2. Nonspecific soft tissue swelling dorsally at the level of the metacarpals. 3. Multifocal arthritis, as above. Dictated by: Dictated on workstation # [id number]
--- NOTE | 2022-12-23 12:06 | Diagnostic Imaging Report ---
EXAMINATION: Left shoulder radiographs, 3 views. COMPARISON: None. HISTORY: 67-year-old female, left shoulder pain after a fall. FINDINGS: The humeral head is normally positioned relative to the glenoid. There is mild glenohumeral joint space loss with osteophyte formation. The acromioclavicular joint is unremarkable in alignment. There are mild acromioclavicular degenerative changes. There is no identified acute fracture. There are degenerative changes of the cervical spine. IMPRESSION: 1. No identified acute bony abnormality of the left shoulder. 2. Mild glenohumeral osteoarthritis and mild acromioclavicular degenerative changes. Dictated by: Dictated on workstation # [id number]
--- NOTE | 2022-12-23 12:13 | Diagnostic Imaging Report ---
PROCEDURE: CT head, face, and cervical spine without contrast. TECHNIQUE: Multiple contiguous axial images were obtained through the head, neck, and facial bones without the use of intravenous contrast. Sagittal and coronal reformations through the cervical spine and facial bones were also performed. Auto Exposure Controls were utilized during the CT exam to meet ALARA standards for radiation dose reduction. INDICATION: Trauma, fall with head, face, and neck pain as well as nasal swelling. FINDINGS: CT HEAD: Ventricles and sulci are prominent, consistent with cerebral volume loss. No sulcal effacement or midline shift is identified. No acute intra-axial or extra-axial hemorrhage is detected. Cisterns are patent. Visualized paranasal sinuses are clear. IMPRESSION: Cerebral atrophy. No acute intracranial process is identified. CT CERVICAL SPINE: There is reversal of the normal cervical lordotic curvature. Minimal anterolisthesis of C3 on C4, C4 on C5 and C5 on C6 is noted. There is severe multilevel degenerative disc disease with variable disc space narrowing and marginal spurring, most marked at C5-C6, C6-C7 and C7-T1 levels. No fractures are identified. Prevertebral tissues are within normal limits. Odontoid is intact. IMPRESSION: Cervical spondylosis and multilevel listheses. No acute bony abnormality is detected. CT FACE: The mandible is intact. Zygomatic arches are intact. Maxillary sinus marino are intact. There does appear to be a fracture of the right nasal bone without significant displacement. Nasal septum is intact. Orbital marino appear to be intact. Globes are unremarkable. IMPRESSION: Right nasal bone fracture. No other significant abnormality is detected. Dictated by: Dictated on workstation # [id number]
[2022-12-23 12:38] VITALS: BP 136/79
== END 2022-12-23 12:38 | disposition home or self-care (01) ==
LOC: EDUNIT# 10:23 → ER 10:27
DX: S02.2XXA Fracture of nasal bones, initial encounter for closed fracture (principal); M25.512 Pain in left shoulder; M79.642 Pain in left hand; G47.30 Sleep apnea, unspecified; Z79.02 Long term (current) use of antithrombotics/antiplatelets; Z79.82 Long term (current) use of aspirin; Z99.89 Dependence on other enabling machines and devices; W01.198A Fall on same level from slipping, tripping and stumbling with subsequent striking against other object, initial encounter
CPT/HCPCS: 70450; 70486; 72125; 73030; 73130

== ENCOUNTER → 2022-12-30 | Outpatient (CLI) | payer BC ==
--- NOTE | 2022-12-30 10:33 | Diagnostic Imaging Report ---
Indication: Routine screening. Comparison is made with prior mammograms 12/29/2021 and 12/16/2020. 2-D and 3-D bilateral screening mammography was performed with CAD. Scattered fibroglandular densities are identified bilaterally. The overall parenchymal pattern is stable. Density in the upper central left breast appears to be stable. No new mass or malignant-appearing microcalcifications are seen. Benign-appearing calcifications are noted bilaterally. Axillae are unremarkable. IMPRESSION: BI-RADS Category 2 No mammographic features suspicious for malignancy are identified. ACR BI-RADS Category 2: Benign findings. Result letter will be mailed to the patient. Note: At least 10% of breast cancer is not imaged by mammography. Dictated by: Dictated on workstation # [id number]
== END ==
LOC: RAD 07:30
PROVIDERS: ATTEND Family Medicine
DX: Z12.31 Encounter for screening mammogram for malignant neoplasm of breast (principal)
CPT/HCPCS: 77063; 77067

== ENCOUNTER → 2023-01-07 | Outpatient (CLI) | payer BC ==
[~2023-01-07] VITALS: Ht 165 cm; Wt 91.0 kg
[~2023-01-07] MED LIST changes: +CATHETER FLUSH 10 ML SYR IVP PRN; +REGADENOSON 0.4 MG/5 ML SYR IV ONE
[2023-01-07 09:16] VITALS: BP 188/94
== END ==
LOC: CARD 07:30
PROVIDERS: ATTEND Internal Medicine Cardiovascular Disease
DX: I25.10 Atherosclerotic heart disease of native coronary artery without angina pectoris (principal)
CPT/HCPCS: 78452; 93017; A9502